=== PATIENT | female | born 1960 | race Caucasian/White ===

== ENCOUNTER 2017-01-25 12:47 | Outpatient (CLI) | payer OTHER | END 2017-01-25 12:48 | disposition home or self-care (01) | LOC: CP 12:47 | PROVIDERS: ATTEND Internal Medicine | DX: J44.9 Chronic obstructive pulmonary disease, unspecified (principal); G47.33 Obstructive sleep apnea (adult) (pediatric); F17.200 Nicotine dependence, unspecified, uncomplicated | CPT/HCPCS: 94060; 94727; 94729 ==

== ENCOUNTER 2017-02-21 20:30 | Outpatient (CLI) | payer OTHER | END 2017-02-21 20:31 | disposition home or self-care (01) | LOC: SLEEPLAB 20:30 | PROVIDERS: ATTEND Internal Medicine | DX: G47.33 Obstructive sleep apnea (adult) (pediatric) (principal); K21.9 Gastro-esophageal reflux disease without esophagitis; J44.9 Chronic obstructive pulmonary disease, unspecified | CPT/HCPCS: 95811 ==

== ENCOUNTER 2017-05-18 20:26 | Inpatient (IN) | payer OTHER ==
[2017-05-18] MEDS ORDERED: Ibuprofen 200 MG TAB ONE (21:41)
[2017-05-18] MEDS ORDERED: Ondansetron ODT 4 MG TAB ONE (21:41)
[2017-05-18 22:09] LABS: #Lymphocytes 1.4 thou/uL (1.20-3.40); #Monocytes 0.8 thou/uL (0.11-0.59); #Neutrophils 7.3 thou/uL (1.40-6.50); %Basophils 0.1 % (0.0-1.0); %Eosinophils 0.4 % (0.0-10.0); %Lymphocytes 14.8 % (21.0-51.0); %Monocytes 8.7 % (0.0-10.0); %Neutrophils 75.9 % (42.0-75.0); Mean Corpuscular Hemoglobin 30.3 pg (27.0-31.0); Mean Corpuscular Volume 91.9 fl (81.0-99.0); Mean Platelet Volume 7.6 fL (7.4-10.4); Platelet Count 218 thou/uL (130-400); RBC Distribution Width 11.4 % (11.5-14.5); White Blood Cell (WBC) Count 9.6 thou/uL (4.8-10.8)
[2017-05-18 22:28] LABS: ALT (SGPT) 29 U/L (8-55); AST (SGOT) 22 U/L (5-34); Alkaline Phosphatase 132 U/L (40-150); Anion Gap 15 mmol/L (10-20); BUN (Urea Nitrogen) 13 mg/dL (9.8-20.1); Bilirubin, Total 0.5 mg/dL (0.2-1.2); Calc. Creatinine Clearance 0 mL/min (70-130); Calcium 9.1 mg/dL (7.8-10.44); Carbon Dioxide 21 mmol/L (22-29); Chloride 106 mmol/L (98-107); Estimated GFR-MDRD 78; Globulin 3.1 g/dL (2.4-3.5); Glucose 99 mg/dL (70-105); Potassium 3.9 mmol/L (3.5-5.1); Protein, Total 7.1 g/dL (6.0-8.3); Sodium 138 mmol/L (136-145)
--- NOTE | 2017-05-18 22:48 | RAD ---
PORTABLE CHEST: 05/18/17 HISTORY: Cough and congestion. The lungs are clear. Heart and mediastinum are unremarkable. IMPRESSION: No acute abnormality. POS: [facility]
[2017-05-18 22:52] LABS: CKMB 0.6 ng/mL (0-6.6); Troponin I Less than 0.010 ng/mL (< 0.028)
[2017-05-18] MEDS ORDERED: predniSONE 20 MG TAB ONE (23:52)
[2017-05-18] MEDS ORDERED: Acetaminophen 500 MG TAB ONE (23:56)
[2017-05-19] MEDS ORDERED: Ondansetron ODT 4 MG TAB SL PRN (01:44)
[2017-05-19] MEDS ORDERED: Ondansetron HCl/PF 4 MG/2 ML Vial IVP PRN (01:44)
[2017-05-19 02:18] VITALS: BMI 33.1
[2017-05-19] MEDS ORDERED: Acetaminophen 325 MG TAB PO PRN (02:33)
[2017-05-19] MEDS ORDERED: hydrALAZINE 20 MG/ML VIAL SLOW IVP PRN (02:33)
[2017-05-19] MEDS ORDERED: Calcium Carbonate 500 MG ChewTAB PO PRN (02:33)
--- NOTE | 2017-05-19 03:01 | HP ---
CHIEF COMPLAINT: Cough, nonproductive and shortness of breath and hypoxia. HISTORY OF PRESENT ILLNESS: This is a 56-year-old pleasant lady who was apparently in usual state of health, came into the hospital with hypoxia and shortness of breath and cough, which is nonproductiv e. Patient has a history of COPD, sleep apnea, WPW syndrome said that she had some cough, which star slick about 4 to 5 days back, which worsened. She also complained of some chills and body aches, had s ome subjective fever. She uses the inhaler at home, but did not help much. She does not have any si ck contacts. The patient also complains of some chest wall pain because of the cough. 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 PAST SURGICAL HISTORY: Significant for some kind of a tumor removed from the abdomen. She does not know exactly what is the nature of it, also has hysterectomy done in the past PSYCHIATRIC HISTORY: Includes anxiety, depression. SOCIAL HISTORY: Smokes. Denies alcohol or recreational drug use. ALLERGIES: PENICILLIN. CURRENT MEDICATIONS: Include albuterol, diltiazem 60 mg p.o. daily, gabapentin 300 mg p.o. 3 times a day, and Symbicort. REVIEW OF SYSTEMS: Significant for cough, shortness of breath, chills, some subjective fever. Other armando, no headache, no eye pain, no hearing loss, no latencies. No chest pain, no diarrhea, dysuria, or polyuria. No memory or mood changes. No neck pain. PHYSICAL EXAMINATION: VITAL SIGNS: Blood pressure is 179/66, T-max is 99.4, respirations 20, 96% on room air, but when she walks the sats dropped to 88 on room air. Patient has a pulse of 113 as well. GENERAL: Patient is lying in bed in mild distress because of the cough and shortness of breath. HEENT: Atraumatic, normocephalic. Pupils are equally round, react to light. Extraocular movements intact. Mucous membranes moist. NECK: Supple. No JVD. CHEST: Some scattered wheezes and decreased breath sounds at the bases. HEART: S1, S2 normal. Tachycardic. ABDOMEN: Soft, obese. EXTREMITIES: No cyanosis, clubbing, or edema. Distal pulses present. NEUROLOGIC: Alert, awake, oriented. No cranial deficits. No sensorimotor deficits. LABORATORY DATA: EKG shows sinus tachycardia at 112. Chest x-ray is negative. Potassium is 3.9, cr eatinine is 0.7. WBC count is 9.4, hemoglobin is 14. ASSESSMENT AND PLAN: 1. Hypoxia secondary to chronic obstructive pulmonary disease exacerbation. We will put the patient on DuoNebs, oxygen, and IV steroids and IV antibiotics. We will monitor the progress of the patient 's hospital stay and make recommendations. 2. Tachycardia with a history of WPW syndrome. Looks like a sinus tachycardia, possibly secondary t o a side effect of the neb treatments. We will monitor her in this hospital stay. 3. Tobacco use. She has been counseled. 4. Obstructive sleep apnea. We will recommend she uses her CPAP at night, severe cough, we will use some cough suppressants. Patient's sequential compression devices for deep venous thrombosis prophy laxis. I will monitor the patient and make recommendations as clinical course evolves.
[2017-05-19] MEDS: Sodium Chloride 0.9% 1,000 ML IV SCH ×2 (04:12→18:10)
[2017-05-19] MEDS: Benzonatate 100 MG CAP PO PRN ×2 (04:14→20:24)
[2017-05-19 04:40] LABS: #Lymphocytes 0.8 thou/uL (1.20-3.40); #Monocytes 0.3 thou/uL (0.11-0.59); #Neutrophils 5.8 thou/uL (1.40-6.50); %Eosinophils 0.4 % (0.0-10.0); %Lymphocytes 12.2 % (21.0-51.0); %Monocytes 4.1 % (0.0-10.0); %Neutrophils 83.3 % (42.0-75.0); Hemoglobin 13.5 g/dL (12.0-16.0); Mean Corpuscular HGB CONC 32.8 g/dL (32.0-36.0); Mean Corpuscular Hemoglobin 30.4 pg (27.0-31.0); Mean Corpuscular Volume 92.6 fl (81.0-99.0); Mean Platelet Volume 7.5 fL (7.4-10.4); Platelet Count 227 thou/uL (130-400); RBC Distribution Width 11.5 % (11.5-14.5); Red Blood Cell (RBC) Count 4.44 mill/uL (4.20-5.40); White Blood Cell (WBC) Count 6.9 thou/uL (4.8-10.8)
[2017-05-19 05:04] LABS: Anion Gap 14 mmol/L (10-20); BUN (Urea Nitrogen) 12 mg/dL (9.8-20.1); Calc. Creatinine Clearance 95 mL/min (70-130); Calcium 9.1 mg/dL (7.8-10.44); Carbon Dioxide 20 mmol/L (22-29); Chloride 113 mmol/L (98-107); Estimated GFR-MDRD 70; Glucose 168 mg/dL (70-105); Potassium 4.5 mmol/L (3.5-5.1); Sodium 142 mmol/L (136-145)
[2017-05-19] MEDS: Nicotine 14 MG PATCH TD SCH (06:08)
[2017-05-19] MEDS: Gabapentin 300 MG CAP PO SCH ×2 (08:56→20:25)
[2017-05-19] MEDS: Docusate 100 MG CAP PO SCH ×2 (08:56→20:24)
[2017-05-19] MEDS ORDERED: Oseltamivir 75 MG CAP PO SCH (12:00)
[2017-05-19] MEDS ORDERED: predniSONE 50 MG TAB PO SCH (12:00)
--- NOTE | 2017-05-19 20:11 | PDOC.PN ---
- Subjective Encounter Start Date: 05/19/17 Encounter Start Time: 09:00 Subjective: nsg notes rev, diana ovn, still having -: difficulty with VANCE - Objective Vital Signs & Weight: Vital Signs (12 hours) Temp Pulse Resp BP Pulse Ox 05/19/17 19:20 98.1 F 90 20 118/66 96 05/19/17 16:16 97.9 F 94 20 119/73 96 05/19/17 11:31 98.0 F 81 20 125/81 94 L Weight Weight 175 lb 9.6 oz I&O: 05/18/17 05/19/17 05/20/17 06:59 06:59 06:59 Intake Total 782 1460 Balance 782 1460 Result Diagrams: 05/19/17 04:28 05/19/17 04:28 Phys Exam - Physical Examination Constitutional: NAD HEENT: PERRLA, moist MMs, sclera anicteric Neck: no nodes, supple Respiratory: no wheezing, no rales, no rhonchi diminished and coarse throughout Cardiovascular: RRR, no significant murmur, no rub Gastrointestinal: soft, non-tender, positive bowel sounds Musculoskeletal: no edema, pulses present Neurological: moves all 4 limbs Psychiatric: normal affect, A&O x 3 Skin: no rash Dx/Plan (1) Influenza Code(s): J11.1 - FLU DUE TO UNIDENTIFIED INFLUENZA VIRUS W OTH RESP MANIFEST Status: Acute (2) COPD exacerbation Code(s): J44.1 - CHRONIC OBSTRUCTIVE PULMONARY DISEASE W (ACUTE) EXACERBATION Status: Acute (3) Tachycardia Code(s): R00.0 - TACHYCARDIA, UNSPECIFIED Status: Acute - Plan Influenza Tamiflu 75mg PO BID supportive care otherwise COPD exac 2/2 influenza steroids (transition IV to PO) nebs ambulatory pulse ox tachycardia likely 2/2 to the above, improved diet: as ros activity: as ros * . Review of Systems - Medications/Allergies Allergies/Adverse Reactions: Allergies Allergy/AdvReac Type Severity Reaction Status Date / Time Penicillins Allergy Verified 12/31/15 15:44 Wasps Allergy Severe Anaphylaxis Uncoded 05/19/17 02:52 Medications: Current Medications Acetaminophen (Tylenol) 650 mg PO Q4H PRN PRN Reason: Headache/Fever or Pain Last Admin: 05/19/17 17:56 Dose: 650 mg Hydrocodone Bitart/Acetaminophen ([place] 5/325) 1 tab PO Q4H PRN PRN Reason: Moderate Pain (4-6) Albuterol/Ipratropium (Duoneb) 3 ml NEB Q6H PRN PRN Reason: SOB &/or Wheezing Benzonatate (Tessalon) 200 mg PO Q6H PRN PRN Reason: Cough Last Admin: 05/19/17 04:14 Dose: 200 mg Calcium Carbonate (Tums) 1,000 mg PO Q4H PRN PRN Reason: Heartburn or Indigestion Diltiazem HCl (Cardizem) 30 mg PO Q6H PRN PRN Reason: HR >120 sustained Docusate Sodium (Colace) 100 mg PO BID [facility] Last Admin: 05/19/17 08:56 Dose: 100 mg Gabapentin (Neurontin) 300 mg PO BID [facility] Last Admin: 05/19/17 08:56 Dose: 300 mg Guaifenesin (Robitussin Sf) 200 mg PO Q4H PRN PRN Reason: Cough Hydralazine HCl (Apresoline) 10 mg SLOW IVP Q4H PRN PRN Reason: Systolic BP > 180 Sodium Chloride (Normal Saline 0.9%) 1,000 mls @ 60 mls/hr IV .[id number] [facility] Stop: 05/20/17 12:04 Last Admin: 05/19/17 18:10 Dose: 1,000 mls Nicotine (Nicoderm Patch) 14 mg TD Q24HR [facility] Last Admin: 05/19/17 06:08 Dose: Not Given Oseltamivir Phosphate (Tamiflu) 75 mg PO BID [facility] Stop: 05/23/17 21:01 Phenol (Chloraseptic [place] 180 Ml Bot) 0 ml PO PRN PRN PRN Reason: Sore Throat Prednisone (Prednisone) 50 mg PO DAILY [facility]
[2017-05-19] MEDS: HYDROcodone/Acetaminophen 5/325 mg Tablet PO PRN (20:25)
[2017-05-19] MEDS: Oseltamivir 75 MG CAP PO SCH (20:25)
[2017-05-20] MEDS: Benzonatate 100 MG CAP PO PRN ×2 (05:07→20:54)
[2017-05-20] MEDS: HYDROcodone/Acetaminophen 5/325 mg Tablet PO PRN ×2 (05:07→20:54)
[2017-05-20] MEDS: Nicotine 14 MG PATCH TD SCH (05:08)
[2017-05-20] MEDS: predniSONE 50 MG TAB PO SCH (09:01)
[2017-05-20] MEDS: Gabapentin 300 MG CAP PO SCH ×2 (09:01→20:55)
[2017-05-20] MEDS: Docusate 100 MG CAP PO SCH ×2 (09:02→20:55)
[2017-05-20] MEDS: Oseltamivir 75 MG CAP PO SCH ×2 (09:02→20:55)
[2017-05-20] MEDS: Diabetic Tussin 200 MG/10 ML UDCUP PO PRN (09:02)
--- NOTE | 2017-05-20 11:17 | PDOC.PN ---
- Subjective Encounter Start Date: 05/20/17 Encounter Start Time: 11:16 Subjective: nsg notes rev, ovn inc coughing and wheezing -: this AM c/o all over achiness - Objective Vital Signs & Weight: Vital Signs (12 hours) Temp Pulse Resp BP Pulse Ox 05/20/17 08:38 97.9 F 101 H 20 113/61 96 05/20/17 08:00 97.9 F 101 H 20 113/61 96 05/20/17 04:00 98.2 F 84 20 102/64 97 Weight Weight 175 lb 9.6 oz I&O: 05/19/17 05/20/17 05/21/17 06:59 06:59 06:59 Intake Total 782 2880 240 Balance 782 2880 240 Result Diagrams: 05/19/17 04:28 05/19/17 04:28 Phys Exam - Physical Examination Constitutional: NAD HEENT: PERRLA, moist MMs Respiratory: wheezing present coarse throughout with wheezing Cardiovascular: RRR, no significant murmur, no rub Gastrointestinal: soft, non-tender, positive bowel sounds Musculoskeletal: no edema, pulses present Neurological: moves all 4 limbs Psychiatric: normal affect, A&O x 3 Dx/Plan (1) Influenza Code(s): J11.1 - FLU DUE TO UNIDENTIFIED INFLUENZA VIRUS W OTH RESP MANIFEST Status: Acute Comment: continue with tamiflu (2) COPD exacerbation Code(s): J44.1 - CHRONIC OBSTRUCTIVE PULMONARY DISEASE W (ACUTE) EXACERBATION Status: Acute Comment: trialed downtitration from IV methylprednisolone to PO prednisone with worsening wheezing and work of breathing will re-initate IV methylprednisolone - likely failed transition to oral regimen (3) Tachycardia Code(s): R00.0 - TACHYCARDIA, UNSPECIFIED Status: Resolved - Plan cont current plan of care, continue antibiotics, respiratory therapy, out of bed /ambulate * . Review of Systems - Medications/Allergies Allergies/Adverse Reactions: Allergies Allergy/AdvReac Type Severity Reaction Status Date / Time Penicillins Allergy Verified 12/31/15 15:44 Wasps Allergy Severe Anaphylaxis Uncoded 05/19/17 02:52 Medications: Current Medications Acetaminophen (Tylenol) 650 mg PO Q4H PRN PRN Reason: Headache/Fever or Pain Last Admin: 05/19/17 17:56 Dose: 650 mg Hydrocodone Bitart/Acetaminophen ([place] 5/325) 1 tab PO Q4H PRN PRN Reason: Moderate Pain (4-6) Last Admin: 05/20/17 05:07 Dose: 1 tab Albuterol/Ipratropium (Duoneb) 3 ml NEB Q6H PRN PRN Reason: SOB &/or Wheezing Benzonatate (Tessalon) 200 mg PO Q6H PRN PRN Reason: Cough Last Admin: 05/20/17 05:07 Dose: 200 mg Calcium Carbonate (Tums) 1,000 mg PO Q4H PRN PRN Reason: Heartburn or Indigestion Diltiazem HCl (Cardizem) 30 mg PO Q6H PRN PRN Reason: HR >120 sustained Diltiazem HCl (Cardizem) 30 mg PO QAM [facility] Last Admin: 05/20/17 09:02 Dose: 30 mg Diltiazem HCl (Cardizem Sr) 60 mg PO QPM [facility] Docusate Sodium (Colace) 100 mg PO BID [facility] Last Admin: 05/20/17 09:02 Dose: 100 mg Gabapentin (Neurontin) 300 mg PO BID [facility] Last Admin: 05/20/17 09:01 Dose: 300 mg Guaifenesin (Robitussin Sf) 200 mg PO Q4H PRN PRN Reason: Cough Last Admin: 05/20/17 09:02 Dose: 200 mg Hydralazine HCl (Apresoline) 10 mg SLOW IVP Q4H PRN PRN Reason: Systolic BP > 180 Sodium Chloride (Normal Saline 0.9%) 1,000 mls @ 60 mls/hr IV .[id number] [facility] Stop: 05/20/17 12:04 Last Admin: 05/19/17 18:10 Dose: 1,000 mls Methylprednisolone Sodium Succinate (Solu-Medrol) 20 mg IVP Q8HR [facility] Nicotine (Nicoderm Patch) 14 mg TD Q24HR [facility] Last Admin: 05/20/17 05:08 Dose: Not Given Oseltamivir Phosphate (Tamiflu) 75 mg PO BID [facility] Stop: 05/23/17 21:01 Last Admin: 05/20/17 09:02 Dose: 75 mg Phenol (Chloraseptic [place] 180 Ml Bot) 0 ml PO PRN PRN PRN Reason: Sore Throat Prednisone (Prednisone) 50 mg PO DAILY [facility] Last Admin: 05/20/17 09:01 Dose: 50 mg
[2017-05-20] MEDS: Ondansetron HCl/PF 4 MG/2 ML Vial SLOW IVP PRN ×2 (12:48→20:54)
[2017-05-20] MEDS: Diltiazem HCl SR 60 mg Capsule PO SCH (20:55)
[2017-05-21] MEDS: Nicotine 14 MG PATCH TD SCH (06:13)
[2017-05-21] MEDS: Chloraseptic Spray 180 ml Bottle PO PRN ×3 (06:13→22:36)
[2017-05-21] MEDS: Gabapentin 300 MG CAP PO SCH ×2 (10:20→20:49)
[2017-05-21] MEDS: Oseltamivir 75 MG CAP PO SCH ×2 (10:20→20:49)
[2017-05-21] MEDS: Docusate 100 MG CAP PO SCH ×2 (10:20→20:49)
[2017-05-21] MEDS: predniSONE 50 MG TAB PO SCH (10:47)
--- NOTE | 2017-05-21 15:15 | PDOC.PN ---
- Subjective Encounter Start Date: 05/21/17 Encounter Start Time: 15:14 Subjective: nsg notes rev, diana ovn, still has persistent cough, got dizzy with cough -: anti-tussive regimen - Objective Vital Signs & Weight: Vital Signs (12 hours) Temp Pulse Resp BP Pulse Ox 05/21/17 11:00 98.1 F 81 16 129/69 94 L 05/21/17 08:00 98.1 F 81 16 93 L 05/21/17 07:49 98.1 F 80 16 120/79 96 Weight Weight 175 lb 9.6 oz I&O: 05/20/17 05/21/17 05/22/17 06:59 06:59 06:59 Intake Total 2880 2721 Balance 2880 2721 Result Diagrams: 05/19/17 04:28 05/19/17 04:28 Phys Exam - Physical Examination Constitutional: NAD HEENT: PERRLA, moist MMs, sclera anicteric mild scattered end expiratory wheezing with rhonchi throughout Gastrointestinal: soft, non-tender, no distention, positive bowel sounds Musculoskeletal: no edema, pulses present Neurological: moves all 4 limbs Psychiatric: normal affect, A&O x 3 Dx/Plan (1) Influenza Code(s): J11.1 - FLU DUE TO UNIDENTIFIED INFLUENZA VIRUS W OTH RESP MANIFEST Status: Acute Comment: continue with tamiflu (2) COPD exacerbation Code(s): J44.1 - CHRONIC OBSTRUCTIVE PULMONARY DISEASE W (ACUTE) EXACERBATION Status: Acute Comment: trialed downtitration from IV methylprednisolone to PO prednisone with worsening wheezing and work of breathing will re-initate IV methylprednisolone - likely failed transition to oral regimen (3) Tachycardia Code(s): R00.0 - TACHYCARDIA, UNSPECIFIED Status: Resolved - Plan cont current plan of care, continue antibiotics, respiratory therapy, incentive spirometry Symptom management, will re-trial oral steroids in AM as respiratory -: status is improved in IV steroids. -: d/w patient * . Review of Systems - Medications/Allergies Allergies/Adverse Reactions: Allergies Allergy/AdvReac Type Severity Reaction Status Date / Time Penicillins Allergy Verified 12/31/15 15:44 Wasps Allergy Severe Anaphylaxis Uncoded 05/19/17 02:52 Medications: Current Medications Acetaminophen (Tylenol) 650 mg PO Q4H PRN PRN Reason: Headache/Fever or Pain Last Admin: 05/19/17 17:56 Dose: 650 mg Hydrocodone Bitart/Acetaminophen ([place] 5/325) 1 tab PO Q4H PRN PRN Reason: Moderate Pain (4-6) Last Admin: 05/20/17 20:54 Dose: 1 tab Albuterol/Ipratropium (Duoneb) 3 ml NEB Q6H PRN PRN Reason: SOB &/or Wheezing Calcium Carbonate (Tums) 1,000 mg PO Q4H PRN PRN Reason: Heartburn or Indigestion Diltiazem HCl (Cardizem) 30 mg PO Q6H PRN PRN Reason: HR >120 sustained Diltiazem HCl (Cardizem) 30 mg PO QAM [facility] Last Admin: 05/21/17 10:20 Dose: 30 mg Diltiazem HCl (Cardizem Sr) 60 mg PO QPM [facility] Last Admin: 05/20/17 20:55 Dose: 60 mg Docusate Sodium (Colace) 100 mg PO BID [facility] Last Admin: 05/21/17 10:20 Dose: 100 mg Gabapentin (Neurontin) 300 mg PO BID [facility] Last Admin: 05/21/17 10:20 Dose: 300 mg Guaifenesin (Robitussin Sf) 200 mg PO Q4H PRN PRN Reason: Cough Last Admin: 05/20/17 09:02 Dose: 200 mg Hydralazine HCl (Apresoline) 10 mg SLOW IVP Q4H PRN PRN Reason: Systolic BP > 180 Methylprednisolone Sodium Succinate (Solu-Medrol) 20 mg IVP Q8HR [facility] Last Admin: 05/21/17 14:49 Dose: 20 mg Nicotine (Nicoderm Patch) 14 mg TD Q24HR [facility] Last Admin: 05/21/17 06:13 Dose: Not Given Ondansetron HCl (Zofran) 4 mg SLOW IVP Q6H PRN PRN Reason: Nausea/Vomiting Last Admin: 05/20/17 20:54 Dose: 4 mg Oseltamivir Phosphate (Tamiflu) 75 mg PO BID [facility] Stop: 05/23/17 21:01 Last Admin: 05/21/17 10:20 Dose: 75 mg Phenol (Chloraseptic [place] 180 Ml Bot) 0 ml PO PRN PRN PRN Reason: Sore Throat Last Admin: 05/21/17 10:48 Dose: 1 spr Prednisone (Prednisone) 50 mg PO DAILY [facility] Last Admin: 05/21/17 10:47 Dose: 50 mg Sodium Chloride (Flush - Normal Saline) 10 ml IVF PRN PRN PRN Reason: Saline Flush Last Admin: 05/21/17 06:14 Dose: 10 ml
[2017-05-21] MEDS: Diltiazem HCl SR 60 mg Capsule PO SCH (20:49)
[2017-05-22] MEDS: Nicotine 14 MG PATCH TD SCH (05:04)
[2017-05-22] MEDS: Diabetic Tussin 200 MG/10 ML UDCUP PO PRN (05:05)
[2017-05-22] MEDS ORDERED: predniSONE 50 MG TAB PO SCH (08:00)
[2017-05-22 08:04] VITALS: BP 133/83; TEMP 97.9
[2017-05-22] MEDS: Oseltamivir 75 MG CAP PO SCH (08:23)
[2017-05-22] MEDS: Gabapentin 300 MG CAP PO SCH (08:23)
[2017-05-22] MEDS: Docusate 100 MG CAP PO SCH (08:23)
[2017-05-22 11:20] LABS: CO2 Tension 41.3 mmHg (35.0-45.0); O2 Tension (PaO2) 75.9 mmHg (80.0-100.0); pH, Arterial 7.41 (7.35-7.45)
[2017-05-22 11:21] LABS: Actual Bicarbonate (HCO3a) 25.7 mEq/L (22-26); Hematocrit-ABG 40.3 % (36.0-47.0)
[2017-05-22 11:22] LABS: ALV-art Gradient 23.255 (0-20); Calcium, Ionized 1.2 mmol/L (1.12-1.30); Puncture Site L.R.
--- NOTE | 2017-05-23 13:23 | DIS ---
DATE OF DISCHARGE: 05/22/2017 DISCHARGE DIAGNOSES: 1. Chronic obstructive pulmonary disease exacerbation. 2. Tachycardia. 3. Influenza. BRIEF SUMMARY OF HOSPITAL COURSE: This is a 56-year-old female who initially presented to the emerge ncy department. CHIEF COMPLAINT: Shortness of breath. Please see the original history and physical for full details surrounding admission. HOSPITAL COURSE: Patient was initially empirically treated for COPD exacerbation including initiatio n of IV Solu-Medrol, supplemental oxygen, DuoNebs, and empiric antibiotics with Levaquin. However, s ubsequently, the patient's influenza screen came back positive and she was started on Tamiflu on day #2 of hospitalization with discontinuation of the Levaquin at that point in time, as she had a design ated infectious etiologies for her COPD exacerbation. Patient was trialed on oral prednisone with th e intention of taper 80 and discharged; however, unfortunately decompensated with increased work of b reathing and wheezing on clinical examination. She was subsequently reinitiated on IV methylpredniso lone 40 mg IV q.6 hours and maintain on this same following 36 hours before being down titrated to pr ednisone again, this time was successfully. At the time of discharge, the patient is instructed to c omplete a course of Tamiflu. Continue with home nebulizer treatments and continue with a prednisone taper. Prescription has been given. Remainder of the patient's chronic medical issues were stable during this hospitalization. The patie nt was found to be mildly tachycardic with heart rate in the low 100s. Initially in the emergency de partment, which was resolved and maintained resolution status throughout the hospitalization. Medication reconciliation as per EMR, the patient is asked to continue on her home regimen with the a ddition of a steroid taper, DuoNebs, and Tamiflu. DISCHARGE INSTRUCTIONS: The patient has been asked to follow closely with her outpatient team includ ing her PCP within the next week. The patient has also been advised to follow closely with her [facility] Pul[facility] Medicine physician as well. Thank you for asking me care for the patient. Questions or concerns, please contact me at [facility].
--- NOTE | 2017-05-26 22:42 | EKG ---
Test Reason : Blood Pressure : / mmHG Vent. Rate : 103 BPM Atrial Rate : 103 BPM P-R Int : 116 ms QRS Dur : 072 ms QT Int : 328 ms P-R-T Axes : 032 013 030 degrees QTc Int : 429 ms Sinus tachycardia Otherwise normal ECG Confirmed by RACHEL WOLFF ([id number]), loan expeditor DAVIDE CROSS ([id number]) on 05/26/2017 10:41:04 PM Referred By: Confirmed By:RACHEL WOLFF
== END 2017-05-22 18:01 | disposition home or self-care (01) | DRG 192 ==
LOC: ERS 20:26 → OBSVTOIN 05-19 00:59 → T4-B 05-19 00:59
PROVIDERS: ADMIT Internal Medicine; ATTEND Internal Medicine
DX: J44.1 Chronic obstructive pulmonary disease with (acute) exacerbation (principal); F17.210 Nicotine dependence, cigarettes, uncomplicated; J11.1 Influenza due to unidentified influenza virus with other respiratory manifestations; G47.33 Obstructive sleep apnea (adult) (pediatric); R00.0 Tachycardia, unspecified; Z88.0 Allergy status to penicillin; T50.995A Adverse effect of other drugs, medicaments and biological substances, initial encounter
CPT/HCPCS: 36415; 71045; 80048; 80053; 82553; 82805; 84484; 85025; 87070; 87205; 87633; 87798; 87804; 90471; 90732; 93005; 94640; 96360; 96361; 99406; A4216; G0009; J2405; J2920; J7506; Q0162

== ENCOUNTER 2017-06-27 11:31 | Outpatient (CLI) | payer OTHER | END 2017-06-27 11:32 | disposition home or self-care (01) | LOC: BICRAD 11:31 | PROVIDERS: ATTEND Family Medicine | DX: M54.6 Pain in thoracic spine (principal) | CPT/HCPCS: 72072 ==

== ENCOUNTER 2017-08-08 12:11 | Outpatient (CLI) | payer OTHER | END 2017-08-08 12:12 | disposition home or self-care (01) | LOC: BICMAMMO 12:11 | PROVIDERS: ATTEND Family Medicine | DX: Z12.31 Encounter for screening mammogram for malignant neoplasm of breast (principal) | CPT/HCPCS: 77067 ==

== ENCOUNTER 2017-12-29 20:56 | Emergency (ER) | payer OTHER ==
--- NOTE | 2017-12-29 21:33 | RAD ---
RADIOGRAPH LEFT KNEE 4 VIEWS: 12/29/17 at 9:16 p.m. HISTORY: 57-year-old female status post acute traumatic injury to the left knee from fall. FINDINGS: There is a fracture of the lateral proximal tibial metaphysis and epiphysis, involving the articular surface of the lateral tibial plateau, where there is minimal displacement. There is no dislocation. No other fracture is visualized. There is suprapatellar hemarthrosis. IMPRESSION: 1. Acute, traumatic, intra-articular, minimally displaced fracture of the left lateral tibial pl ateau. 2. Suprapatellar hemarthrosis. POS: [facility]
[2017-12-29] MEDS ORDERED: HYDROcodone/Acetaminophen 10/325 mg Tablet ONE (21:49)
== END 2017-12-29 23:20 | disposition home or self-care (01) ==
LOC: ERS 20:56
DX: S82.142A Displaced bicondylar fracture of left tibia, initial encounter for closed fracture (principal); F41.9 Anxiety disorder, unspecified; F17.210 Nicotine dependence, cigarettes, uncomplicated; G47.30 Sleep apnea, unspecified; J44.9 Chronic obstructive pulmonary disease, unspecified; M19.90 Unspecified osteoarthritis, unspecified site; G62.9 Polyneuropathy, unspecified; Z79.51 Long term (current) use of inhaled steroids; Z79.899 Other long term (current) drug therapy; W01.0XXA Fall on same level from slipping, tripping and stumbling without subsequent striking against object, initial encounter

== ENCOUNTER 2018-01-04 11:20 | Day surgery (SDC) | payer OTHER ==
[2018-01-04] MEDS ORDERED: Clindamycin/D5W 600 mg/50 ml Premix Bag ONE (12:52)
[2018-01-04] MEDS ORDERED: Ropivacaine 0.5% HCl/PF (150 MG/30 ML VIAL) ONE (13:54)
[2018-01-04] MEDS ORDERED: Ropivacaine 0.2% HCl/PF (40 MG/20 ML VIAL) ONE (13:54)
[2018-01-04] MEDS ORDERED: Bupivacaine HCl 0.5%/Epinephrine 1:200,000/PF 30 ml Vial ONE (13:54)
[2018-01-04] MEDS ORDERED: Fentanyl 100 MCG/2 ML VIAL ONE ×2 (13:57→15:11)
[2018-01-04] MEDS ORDERED: Midazolam HCl 2 mg/2 ml Vial ONE (13:57)
[2018-01-04] MEDS ORDERED: Fentanyl 100 MCG/2 ML VIAL IV PRN (14:34)
[2018-01-04] MEDS ORDERED: Promethazine HCl 25 MG/ML VIAL IM PRN (14:34)
[2018-01-04] MEDS ORDERED: traMADol HCl 50 MG TAB PO PRN ×2 (14:34)
[2018-01-04] MEDS ORDERED: Zolpidem Tartrate 5 MG TAB PO PRN (14:34)
[2018-01-04] MEDS ORDERED: Ondansetron HCl/PF 4 MG/2 ML Vial IVP PRN (14:34)
[2018-01-04] MEDS ORDERED: HYDROcodone/Acetaminophen 10/325 mg Tablet PO PRN ×2 (14:34)
[2018-01-04] MEDS ORDERED: Ropivacaine 0.2% 550 ML 550 ML NERVE BLCK SCH (14:34)
[2018-01-04] MEDS ORDERED: PHENYLEPHRINE-NS 100 MCG/ML 10 ML SYRINGE ONE (14:50)
[2018-01-04] MEDS ORDERED: PROPOFOL 200 MG/20 ML VIAL ONE (14:50)
[2018-01-04] MEDS ORDERED: Lidocaine 1% PF 5 ML VIAL ONE (14:50)
[2018-01-04] MEDS ORDERED: Promethazine HCl 25 MG/ML VIAL ONE ×2 (17:04→17:27)
[2018-01-04] MEDS ORDERED: Ondansetron HCl/PF 4 MG/2 ML Vial ONE (17:28)
[2018-01-04] MEDS ORDERED: HYDROcodone/Acetaminophen 7.5/325 mg Tablet PO PRN ×2 (20:00)
[2018-01-04] MEDS ORDERED: HYDROcodone/Acetaminophen 5/325 mg Tablet PO PRN (20:01)
[2018-01-04] MEDS: Ketorolac Tromethamine 30 MG/ML VIAL IVP PRN (20:17)
[2018-01-04] MEDS: Sodium Chloride 0.9% 1,000 ML IV SCH (20:20)
[2018-01-04 21:11] VITALS: BMI 29.6
[2018-01-05] MEDS ORDERED: Albuterol Sulfate 1.25 MG/3 ML NEB NEB PRN (02:21)
[2018-01-05] MEDS ORDERED: Guaifenesin DM 100-10/5 ML UDCUP PO PRN (02:30)
[2018-01-05] MEDS ORDERED: Mometasone/Formoterol 120 PUFF INHALER INH SCH (06:30)
[2018-01-05] MEDS: Sodium Chloride 0.9% 1,000 ML IV SCH ×2 (07:40→17:28)
--- NOTE | 2018-01-05 07:48 | RAD ---
LEFT KNEE 2 VIEWS: HISTORY: Status post ORIF. COMPARISON: 12/29/17. FINDINGS: Two portable fluoroscopic spot images of the left knee are performed. Metal plate and screws stabilize the lateral tibial plateau with improved position and alignment from the prior study. IMPRESSION: Status post open reduction internal fixation left tibia, including the lateral tibial plateau. POS: [facility]
[2018-01-05] MEDS ORDERED: Prevnar 13-Val Conj/PF 0.5 ML SYRINGE IM ONE (09:00)
[2018-01-05] MEDS ORDERED: Montelukast Sodium 10 mg Tablet PO SCH (09:00)
[2018-01-05] MEDS: Ketorolac Tromethamine 30 MG/ML VIAL IVP PRN (10:42)
[2018-01-05] MEDS: HYDROcodone/Acetaminophen 5/325 mg Tablet PO PRN ×2 (10:43→17:39)
[2018-01-05 16:41] VITALS: BP 111/70; TEMP 99
--- NOTE | 2018-01-07 13:58 | OP ---
DATE OF SURGERY: 01/04/2018 PREOPERATIVE DIAGNOSIS: Left lateral tibial plateau fracture. POSTOPERATIVE DIAGNOSIS: Left lateral tibial plateau fracture. SURGICAL PROCEDURE: Open reduction internal fixation left lateral tibial plateau. ANESTHESIA: General. SURGEON: Bull Peres M.D. TOURNIQUET TIME: 37 minutes at 300 mmHg. IMPLANTS: Synthes 3.5 mm LCP proximal tibial plate, 4-hole. COMPLICATIONS: None. DRAINS: None. SPECIMENS: None. OUTCOME: Near anatomic alignment. INDICATIONS: The patient is a 57-year-old lady, status post fall sustaining a left lateral tibial pl ateau fracture. There is some minor joint depression. After discussion with patient including risks and benefits, we decided to proceed with open reduction internal fixation. Informed consent has bee n obtained. I believe all questions answered. PROCEDURE: After the induction of general anesthesia, the patient was positioned supine on the OR ta ble, then a sterile prep and drape was performed in the left lower extremity. Next, an Esmarch olivo ge was used to exsanguinate the limb and then tourniquet inflated to 300 mmHg. Next, a curvilinear i ncision was made at the proximal lateral tibia. After skin was sharply incised, dissection was kymberly ed down bluntly to the underlying anterior compartment. The fascia of the anterior compartment was r eleased off of the crest of the tibia and further released at the lateral flare of the tibia. The mu scle belly was reflected posteriorly gaining access to the lateral flare of the proximal tibia. At t his point, the dissection was further carried out proximally under the lateral meniscus such that the lateral plateau joint surface could be identified and visualized. This plateau was remarkable for a slight step-off and gap at the joint surface. This step-off was then corrected with manipulation of the lateral fragment. Once corrected, it was held in place with a K-wire. Next, a 4-hole lateral t ibial plateau plate was applied to the lateral cortex of the proximal tibia. This was then held in p lace with a K-wire through the plate. C-arm imaging on both AP and lateral views were performed to c onfirm appropriate position of the hardware. Next, a cortical screw was used to hold the plate again st the tibia. This was then followed by insertion of 4 locking screws under the plateau in a rafter type fashion. At the completion of this, an additional oblique screw was placed in standard fashion. AP and lateral C-arm images showed acceptable alignment of the joint surface and acceptable positio darryl of the hardware. The wound was then irrigated with bulb syringe and closed in layers with 0 Anurag ryl for the fascia of the anterior compartment, followed by 2-0 Vicryl subcutaneously, and alberto fo r the skin. A Xeroform gauze, Webril, and Moris wrap dressing was applied to the knee and the knee was placed in a hinged knee brace. Tourniquet was let down at completion of dressing and patient was tr ansferred to recovery room in stable condition. There were no complications. She tolerated the proc edure well.
== END 2018-01-05 18:40 | disposition home or self-care (01) ==
LOC: SDC 11:20 → SURG B 19:59 → SDC 01-05 18:40
PROVIDERS: ATTEND Orthopaedic Surgery
PROC: 0QSH04Z Reposition Left Tibia with Internal Fixation Device, Open Approach (ICD-10-PCS; principal; 2018-01-05)
DX: S82.142A Displaced bicondylar fracture of left tibia, initial encounter for closed fracture (principal); E11.9 Type 2 diabetes mellitus without complications; J44.9 Chronic obstructive pulmonary disease, unspecified; K21.9 Gastro-esophageal reflux disease without esophagitis; M19.90 Unspecified osteoarthritis, unspecified site; G25.81 Restless legs syndrome; F17.210 Nicotine dependence, cigarettes, uncomplicated; Z79.51 Long term (current) use of inhaled steroids; Z79.899 Other long term (current) drug therapy; Z88.0 Allergy status to penicillin; Z91.038 Other insect allergy status; W18.30XA Fall on same level, unspecified, initial encounter
CPT/HCPCS: 76001; 96374; 96375; 96376; A4216; A4306; C1713; G8978-GP-CL; G8979-GP-CJ; J0670; J1885; J2001; J2250; J2405; J2550; J2704; J2795; J3010; J3490

== ENCOUNTER 2018-07-04 16:35 | Emergency (ER) | payer MEDICAID, OTHER ==
--- NOTE | 2018-07-04 21:12 | RAD ---
CHEST TWO VIEW 07/04/18 HISTORY: Chest pain. Cough. COMPARISON: Radiograph 08/16/17. FINDINGS: Some linear scarring left lung base. No pneumothorax. No effusion. The cardiac silhouette and mediast inal contours appear within normal limits. IMPRESSION: No acute intrathoracic abnormality. POS: [facility]
[2018-07-04] MEDS ORDERED: Albuterol Sulfate 2.5 mg/3 ml Neb ONE (21:29)
== END 2018-07-04 21:27 | disposition home or self-care (01) ==
LOC: ERS 16:35
DX: J44.1 Chronic obstructive pulmonary disease with (acute) exacerbation (principal); G47.30 Sleep apnea, unspecified; Z79.51 Long term (current) use of inhaled steroids; Z79.899 Other long term (current) drug therapy
CPT/HCPCS: 71046; 87804; 94640; J7611; J7620

== ENCOUNTER 2018-12-17 12:43 | Outpatient (CLI) | payer MEDICAID ==
--- NOTE | 2018-12-17 14:52 | MMO ---
Bilateral MAMMO Bilat Screen DDI. CLINICAL HISTORY: Patient is 58 years old and is seen for screening. The patient has no family history of breast cancer. The patient has no personal history of cancer. VIEWS: The views performed were: bilateral craniocaudal and bilateral mediolateral oblique. FILMS COMPARED: The present examination has been compared to prior imaging studies performed at [facility] on 06/14/2015, and at [facility] on 06/05/2016 and 08/08/2017. This study has been interpreted with the assistance of computer-aided detection. MAMMOGRAM FINDINGS: There are scattered fibroglandular densities. Benign calcifications are noted. There are no suspicious masses, suspicious calcifications, or new areas of architectural distortion. IMPRESSION: THERE IS NO MAMMOGRAPHIC EVIDENCE OF MALIGNANCY. A ROUTINE FOLLOW-UP MAMMOGRAM IN 1 YEAR IS RECOMMENDED. ACR BI-RADS Category 2 - Benign finding MAMMOGRAPHY NOTE: 1. A negative mammogram report should not delay a biopsy if a dominant of clinically suspicious mass is present. 2. Approximately 10% to 15% of breast cancers are not detected by mammography. 3. Adenosis and dense breasts may obscure an underlying neoplasm. Reported by: BEBA BYRD MD Electonically Signed: [id number]
== END 2018-12-17 12:44 | disposition home or self-care (01) ==
LOC: BICMAMMO 12:43
PROVIDERS: ATTEND Family Medicine
DX: Z12.31 Encounter for screening mammogram for malignant neoplasm of breast (principal)
CPT/HCPCS: 77067

== ENCOUNTER 2018-12-18 11:25 | Outpatient (CLI) | payer MEDICAID ==
--- NOTE | 2018-12-18 13:10 | RAD ---
THREE VIEWS OF THE RIGHT FOOT: 12/18/18 COMPARISON: None. HISTORY: Right foot pain for a few years. FINDINGS: Three views of the right foot shows no evidence of acute fracture or dislocation. No degenerative ilana nges are seen. No soft tissue swelling is present. IMPRESSION: No evidence of acute osseous abnormality. POS: [facility]
--- NOTE | 2018-12-18 13:11 | RAD ---
THREE VIEWS OF THE LEFT FOOT: 12/18/18 COMPARISON: None. HISTORY: Foot pain for years. FINDINGS: Views of the left foot shows diffuse osteopenia. There is no evidence of acute fracture or dislocatio n. No soft tissue swelling is seen. No degenerative changes are present. IMPRESSION: No evidence of acute osseous abnormality. POS: [facility]
== END 2018-12-18 11:26 | disposition home or self-care (01) ==
LOC: BICRAD 11:25
PROVIDERS: ATTEND Family Medicine
DX: M79.671 Pain in right foot (principal); M79.672 Pain in left foot

== ENCOUNTER 2019-01-15 07:36 | Observation (INO) | payer OTHER ==
[2019-01-14 11:55] VITALS: BMI 191.3
[2019-01-15 08:29] LABS: #Basophils 0.1 thou/uL (0.0-0.2); #Eosinphils 0.2 thou/uL (0.0-0.7); #Lymphocytes 3.5 thou/uL (1.20-3.40); #Neutrophils 8.1 thou/uL (1.40-6.50); %Basophils 0.5 % (0.0-1.0); %Eosinophils 1.4 % (0.0-10.0); %Lymphocytes 27.5 % (21.0-51.0); %Neutrophils 62.6 % (42.0-75.0); Hemoglobin 12.5 g/dL (12.0-16.0); Mean Corpuscular HGB CONC 33.9 g/dL (32.0-36.0); Mean Corpuscular Hemoglobin 30.2 pg (27.0-31.0); Mean Corpuscular Volume 89.2 fL (78.0-98.0); Mean Platelet Volume 8.2 fL (7.4-10.4); Platelet Count 241 thou/uL (130-400); RBC Distribution Width 11.9 % (11.5-14.5); Red Blood Cell (RBC) Count 4.15 mill/uL (4.20-5.40); White Blood Cell (WBC) Count 12.9 thou/uL (4.8-10.8)
[2019-01-15 08:36] LABS: PTT 27.7 SEC (22.9-36.1); Prothrombin Time 12.9 SEC (12.0-14.7)
[2019-01-15 08:41] LABS: Anion Gap 11 mmol/L (10-20); BUN (Urea Nitrogen) 19 mg/dL (9.8-20.1); Calc. Creatinine Clearance 92 mL/min (70-130); Calcium 9.3 mg/dL (7.8-10.44); Carbon Dioxide 26 mmol/L (22-29); Chloride 111 mmol/L (98-107); Estimated GFR-MDRD 78; Glucose 103 mg/dL (70-105); Potassium 4.2 mmol/L (3.5-5.1); Sodium 144 mmol/L (136-145)
[2019-01-15] MEDS ORDERED: Lidocaine 1% (PF) 30 ML VIAL ONE (09:10)
[2019-01-15] MEDS ORDERED: Heparin 10,000 UNITS/1 ML VIAL ONE (09:10)
[2019-01-15] MEDS ORDERED: Midazolam HCl 2 mg/2 ml Vial ONE (09:55)
[2019-01-15] MEDS ORDERED: Fentanyl 100 MCG/2 ML VIAL ONE (09:55)
[2019-01-15] MEDS ORDERED: Ketamine 50 MG/ML (10ML VIAL) ONE (09:55)
[2019-01-15] MEDS ORDERED: Propofol 500 MG/50 ML VIAL ONE (09:55)
[2019-01-15] MEDS ORDERED: Phenylephrine HCL 10 MG/ML VIAL ONE (10:12)
[2019-01-15] MEDS ORDERED: Isoproterenol 0.2 MG/1 ML AMP ONE (11:00)
[2019-01-15] MEDS ORDERED: Ondansetron HCl/PF 4 MG/2 ML Vial IVP PRN (13:18)
[2019-01-15] MEDS ORDERED: Promethazine HCl 25 MG/ML VIAL IM PRN (13:18)
[2019-01-15] MEDS ORDERED: Promethazine HCl 25 MG/ML VIAL SLOW IVP PRN (13:18)
[2019-01-15] MEDS ORDERED: Ondansetron PF 4 MG/2 ML Vial ONE (13:44)
[2019-01-15] MEDS ORDERED: Promethazine HCl 25 MG/ML VIAL ONE (13:50)
--- NOTE | 2019-01-15 16:56 | EKG ---
Test Reason : PREOP Blood Pressure : / mmHG Vent. Rate : 075 BPM Atrial Rate : 075 BPM P-R Int : 108 ms QRS Dur : 124 ms QT Int : 422 ms P-R-T Axes : 058 -42 080 degrees QTc Int : 471 ms Normal sinus rhythm Jfbbj-Ccbrrpeus-Lbwnb Abnormal ECG When compared with ECG of 18-MAY-2017 22:08, Ndolm-Veecsiazt-Lptar is now Present Confirmed by DR. Scott HAY ([id number]) on 01/15/2019 4:56:15 PM Referred By: [facility] Confirmed By:DR. Scott HAY
[2019-01-15] MEDS ORDERED: Acetaminophen 325 MG TAB PO PRN (17:11)
[2019-01-15] MEDS ORDERED: Acetaminophen 325 MG TAB PO SCH (17:15)
--- NOTE | 2019-01-15 17:41 | OP ---
DATE OF PROCEDURE: 01/15/2019 PROCEDURE PERFORMED: Electrophysiology study and radiofrequency ablation. REFERRING PHYSICIAN: Girish Taveras MD REASON FOR PROCEDURE: Ms. Saravia is a 58-year-old woman with history of palpitations since teenager age. She is known to have an abnormal EKG consistent with pre-excitation during sinus rhythm. No EKG during tachycardia is available. She is here for EP study and radiofrequency ablation. DESCRIPTION OF PROCEDURE: The patient received general anesthesia by Anesthesia specialist. After adequate level of sedation achieved, the left and right femoral vein were prepped, draped, and anesthetized using subcutaneous lidocaine and on the left side, a 6 and 8-Romansh sheath was introduced through which a octapolar and decapolar diagnostic catheter were advanced to the right atrium, right ventricle , His bundle, and CS position. Pacing mapping and recording were performed in each location including stimulation of the left atrium from the CS and the RV as well. Para-Hisian pacing was also performed. On the right side, an 8-Romansh sheath was introduced through which a ThermoCool SFST catheter was advanced to the right atrium and 3D map of the right atrium was performed. The baseline rhythm was sinus rhythm at 922 milliseconds cycle length, NM 160 milliseconds, QRS 108 milliseconds, AH 108, HV 35 milliseconds, QT 423 milliseconds. During the baseline measurements, pre-excitation was noted when actually the HV interval was shorter at 20 milliseconds, occasionally negative, AH was actually in zero hence the delta wave present. The AV Wenckebach cycle length was 460 milliseconds. Retrograde Wenckebach was initially 460 milliseconds. AV kei ERP was 600/400 milliseconds. Dual AV kei physiology was not noted. The AV Wenckebach was less than 300 milliseconds with pathway potential more rapid than that. The pathway ERP was 260 milliseconds, on Isuprel, we were able to induce a short nonsustained one-to-one, narrow complex tachycardia could be consistent with orthodromic AV reentrant tachycardia. Following that, burst atrial pacing maneuvers were further performed, but no sustained SVT was inducible at this time. No atrial flutter, was also inducible down to [address] Following that mapping of the accessory pathway was performed. The shortest AV time was mapped to the roof of the CS os. Radiofrequency ablation was performed in this area. A total of 3 minutes at 30 linares delivered. During the mejia, no AV block was observed. Occasional junctional beatings were seen. Following the mejia, the accessory pathway has not been observed. Normal AV conduction was seen. Isuprel was initiated at this point at 6 mcg and during Isuprel administration, the patient transiently developed complete AV block with accessory pathway conduction seen. With isuprel washout the accesory pathway conduction disappeared and 2:1 AV block was seen, which was clearly AV kei level. 30 minutes of wait of Isuprel resolved the AV block, at the end of case, an AV kei Wenckebach was observed at 600 milliseconds. The AV kei ERP was 600/340 milliseconds. HV interval was normal at 35 milliseconds and no pre-excitation was seen at the end of the case. CONCLUSION: 1. Obvious pre-excitation with accessory pathway mapped to the CS roof area. 2. Short nonsustained AV reciprocating tachycardia was seen on Isuprel. 3. Successful pathway ablation performed with no pre-excitation observed in the end of the case. 4. Transient AV kei level block was seen on Isuprel, which resolved with discontinuation of Isuprel by the end of the case with adequate AV kei and infra-Hisian function seen. 5. No additional tachycardia is inducible. PLAN: Continue to observe for recurrence of atrial arrhythmias and monitor overnight for bradycardia. If recurrent SVT is seen consider Cryoablation. Job ID: [id number] [facility]
[2019-01-15] MEDS ORDERED: Ibuprofen 200 MG TAB PO PRN (19:58)
[2019-01-15] MEDS ORDERED: Mometasone/Formoterol 120 PUFF INHALER INH PRN (19:58)
[2019-01-15] MEDS ORDERED: Albuterol Sulfate 1.25 MG/3 ML NEB NEB PRN (19:58)
[2019-01-15] MEDS ORDERED: Pregabalin 50 MG CAP PO SCH (21:00)
[2019-01-15] MEDS ORDERED: Montelukast Sodium 10 mg Tablet PO SCH (21:00)
[2019-01-15] MEDS ORDERED: Ondansetron ODT 4 MG TAB PO PRN (21:40)
[2019-01-15] MEDS ORDERED: Ondansetron PF 4 MG/2 ML Vial IVP PRN (21:40)
--- NOTE | 2019-01-16 01:36 | CON ---
DATE OF CONSULTATION: 01/15/2019 TIME OF INITIAL ASSESSMENT: 1900 hours. PRIMARY CARE PHYSICIAN: Dr. Smith. REFERRING PHYSICIAN: Dr. Johnson. REASON FOR CONSULTATION: Medical management. REASON FOR ADMISSION: Status post ablation for WPW. HISTORY OF PRESENT STAY: Ms. Saravia is a 58-year-old woman, who has a history of WPW who underwent cardiac ablation earlier today done by Dr. Johnson. She is known to have a long-standing history of palpitations since she was a teenager. The patient has had persistent abnormal EKGs with pre-excitation during sinus rhythm. She had an EP study done today with RFA. Per operative note, it appears the patient was noted to have a short non-sustained AV reciprocating tachycardia. There was successful pathway ablation performed with no pre-excitation noted following the procedure. She was recommended for observation for recurrence of atrial arrhythmias monitoring overnight. During the procedure, she did become bradycardic, however, this did improve. Following the procedure, she did undergo an EKG that showed a delta wave. On telemonitoring after that, she was noted have WPW. Dr. Johnson was notified by the floor nurse and it was recommended to continue observation. There were no plans to take her for any further procedures at that point. The patient states she feels nauseated and did have an episode of vomiting after the procedure. Since then, she has been sleeping and just woke up 10 minutes prior to initial assessment. She reports feeling nauseated due to being hungry. She was given broth, but is asking for a regular meal. She does report chest pain, which she describes as a pressure and states it is 8/10 in severity in the center of her chest. She is unsure when it started and states she noticed after waking up. Denies any associated shortness of breath. States it is nonradiating. Reports having shortness of breath at baseline associated with COPD, but states she feels she is at her baseline. Denies having any abdominal pain or cramping. Reports a mild headache, which she normally treats with ibuprofen. No visual changes. All other review of systems are negative. Echo done at outside facility in 05/2018 showed EF 60-65%, grade 1 diastolic dysfunction, mild TR, mild MR, and aortic valve sclerosis but opens well. PAST MEDICAL HISTORY: 1. Sleep apnea, uses CPAP. 2. WPW. 3. COPD. 4. Carpal tunnel. 5. Bone spur in the right shoulder. 6. Osteoarthritis. 7. Neuropathy. PAST SURGICAL HISTORY: 1. History of tumor removal from female organs. 2. Hysterectomy. 3. Left knee surgery. SOCIAL HISTORY: The patient is independent. Reports that she continues to smoke though less than she normally does. Denies any heavy alcohol use or illicit drug use. FAMILY HISTORY: Noncontributory. ALLERGIES: 1. PENICILLIN. 2. INTOLERANCE TO TRAMADOL. CURRENT MEDICATIONS: 1. Albuterol. 2. Budesonide/formoterol. 3. Ibuprofen. 4. DuoNebs. 5. Montelukast. 6. Omeprazole. 7. Lyrica. PHYSICAL EXAMINATION: GENERAL: The patient appears well developed, well nourished, is in no acute distress. VITAL SIGNS: Temperature 98.8, pulse 89, respirations 20, O2 saturation 94% on room air, blood pressure 119/73. HEENT: Normocephalic and atraumatic. Pupils are equal, round, and reactive to light. Sclerae without icterus. Oropharynx is clear. NECK: Supple. LUNGS: Clear to auscultation bilaterally without any wheezes, rales, or rhonchi. CARDIAC: Regular rate and rhythm. ABDOMEN: Soft, nontender, nondistended. Normoactive bowel sounds present. EXTREMITIES: No lower leg swelling or edema. NEUROLOGIC: Alert and oriented x3. SKIN: Without rash or jaundice. LABORATORY DATA: White blood count 12.9, hemoglobin 12.5, hematocrit 37.1, platelets 241. PT 12.9, INR 1, PTT 27.7. Sodium 144, potassium 4.2, BUN 19, creatinine 0.77, GFR 78, glucose 103, calcium 9.3. IMAGING DATA: None. IMPRESSION AND PLAN: Ms. Saravia is a very pleasant 58-year-old woman, who has been referred for management of the followin 1. 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 Per Dr. Johnson, she is to remain under observation with continuous cardiac monitoring. She has been noted by telemetry to be in Qoqkh-Szntlhzgw-Flkxu syndrome with a heart rate of 88. This was ordered at 1750 hours. We will obtain an EKG. Dr. Johnson is aware. Further management as per Dr. Johnson. 2. Chest pain. The patient reports 8/10 discomfort, possibly associated with vomiting. She did have some mild discomfort of her chest on palpation. We will give Tylenol for her pain and we will assess EKG for any ST changes or T-wave abnormalities. 3. Shortness of breath. The patient with chronic obstructive pulmonary disease at baseline and states she does not have any worsening shortness of breath at this present time. Continue DuoNebs and resume home inhalers. Monitor O2 saturations. 4. Headache. The patient requesting ibuprofen. 5. Gastrointestinal prophylaxis. We will resume Protonix, which she takes at home. 6. Deep venous thrombosis prophylaxis. 7. Mechanical sequential compression devices. 8. Code status is full. Her surrogate decision maker is her daughter, Rosalia Monet. 9. The patient's case was discussed with Dr. Taveras who agrees with plan of care as described above. Job ID: [id number] [facility]
[2019-01-16 04:36] LABS: #Basophils 0.1 thou/uL (0.0-0.2); #Lymphocytes 1.8 thou/uL (1.20-3.40); #Monocytes 0.8 thou/uL (0.11-0.59); #Neutrophils 14.5 thou/uL (1.40-6.50); %Basophils 0.7 % (0.0-1.0); %Lymphocytes 10.2 % (21.0-51.0); %Monocytes 4.5 % (0.0-10.0); %Neutrophils 84.6 % (42.0-75.0); Hemoglobin 12.9 g/dL (12.0-16.0); Mean Corpuscular HGB CONC 33.8 g/dL (32.0-36.0); Mean Corpuscular Hemoglobin 30.7 pg (27.0-31.0); Mean Corpuscular Volume 90.7 fL (78.0-98.0); Mean Platelet Volume 8.1 fL (7.4-10.4); Platelet Count 209 thou/uL (130-400); RBC Distribution Width 12.1 % (11.5-14.5); Red Blood Cell (RBC) Count 4.22 mill/uL (4.20-5.40); White Blood Cell (WBC) Count 17.2 thou/uL (4.8-10.8)
[2019-01-16 04:54] LABS: Anion Gap 14 mmol/L (10-20); BUN (Urea Nitrogen) 15 mg/dL (9.8-20.1); Calc. Creatinine Clearance 97 mL/min (70-130); Carbon Dioxide 21 mmol/L (22-29); Chloride 112 mmol/L (98-107); Estimated GFR-MDRD 82; Glucose 203 mg/dL (70-105); Potassium 4.3 mmol/L (3.5-5.1); Sodium 143 mmol/L (136-145)
[2019-01-16 12:04] VITALS: BP 114/61; TEMP 98.1
--- NOTE | 2019-01-16 18:18 | PRG ---
DATE OF SERVICE: 01/16/2019 SUBJECTIVE: Ms. Saravia is returning for followup. She has been doing fair without angina, CHF, dizziness, or loss of consciousness. OBJECTIVE: VITAL SIGNS: Blood pressure is 114/61, heart rate 60, respirations 20, temperature 98.1 degrees Fahrenheit. GENERAL: This is an alert and oriented man, in no apparent distress. NECK: Supple. Jugular veins not distended. CHEST: Coarse without crackles. HEART: Sounds are regular to rate and rhythm. No murmur or gallop. ABDOMEN: Benign. Bowel sounds are positive. EXTREMITIES: Lower extremities without edema, clubbing, or cyanosis. Groin catheter insertion site is without reaction. DATABASE: EKG is reviewed revealing sinus rhythm. No AV blocks. Presence of pre-excitation is noted on this morning's EKG. No pre-excitation was seen on the EKG from last night. Normal MI. LABORATORY DATA: White cell count 7.2, hemoglobin 12.9, platelet count is 209. Sodium 143, potassium 4.3, BUN is 15, creatinine 0.73. ASSESSMENT AND PLAN: Ms. Saravia is a pleasant 58-year-old woman, who has history of recurrent palpitations, underwent an electrophysiology study and radiofrequency ablation by me yesterday. She was demonstrated to have an accessory pathway with the earliest ventricular activation in the posterior septal area close to the CS os. Radiofrequency ablation was performed in this location, which eliminated the pre-excitation. During Isuprel administration, she had an episode of complete AV block, which through quickly resolved after stopping Isuprel and with recovery. This could have been due to irritation of AV node. Hence, the ablation in the CS os area, but again, normal AV conduction and infra-Hisian function were seen in the end of the EP study. During overnight, recurrent pre-excitation was seen. Hence, no sustained atrial fibrillation/flutter or SVT was induced during the study. At this point, it is reasonable to continue monitoring for any recurrence of any atrial arrhythmias. She is stable otherwise for discharge. We will see her back in 6 weeks in the office for followup. Job ID: [id number]
--- NOTE | 2019-01-17 04:17 | DIS ---
DATE OF ADMISSION: 01/15/2019 DATE OF DISCHARGE: 01/16/2019 DISCHARGE DIAGNOSES: 1. Jnxmw-Xduevblkz-Atiru syndrome, status post radiofrequency ablation. 2. Chest pain secondary to #1, resolved. 3. Dyspnea secondary to #1. 4. Chronic obstructive pulmonary disease without exacerbation. 5. Obstructive sleep apnea, on nocturnal CPAP. CONSULTATIONS: 1. Dr. Johnson with Electrophysiology Service. 2. Dr. Taveras with Cardiology Service. PERTINENT LABORATORY AND X-RAY FINDINGS: CBC showed a white blood cell count ranging between 12.9 to 17.2. HOSPITAL COURSE: The patient was observed on the telemetry unit after initially presenting with palpitations and shortness of breath with an EKG consistent with Rnqjg-Qeojpiwvo-Lnije syndrome. The patient was initially evaluated by Cardiology Service with referral to the Electrophysiology Service, at which point, the patient underwent electrophysiology study. The patient underwent successful radiofrequency ablation of accessory pathway due to Zlxkx-Pwakcjmae-Oovpv syndrome. The patient tolerated the procedure without complication and current telemetry monitoring shows a sinus bradycardia with heart rates in the 50s to 60s. The patient overall remained clinically stable during the hospital course with stable vital signs at the time of discharge. I have examined the patient at the time of discharge and discussed followup instructions. The patient verbalized understanding and in agreement, ready for discharge on 01/16/2019. DISCHARGE MEDICATIONS: 1. Albuterol sulfate 1.25 mg nebulized q.6 hours p.r.n. 2. Symbicort 80/4.5 2 puffs inhaled b.i.d. 3. Ibuprofen 200 mg p.o. q.6 hours p.r.n. 4. DuoNeb 3 mL nebulized at bedtime p.r.n. 5. Singulair 10 mg p.o. q.a.m. 6. Omeprazole 40 mg p.o. b.i.d. 7. Lyrica 50 mg p.o. at bedtime. FOLLOWUP: The patient may follow up with Yandel Smith within 7 days of discharge. The patient may follow up with Dr. Johnson with Electrophysiology Service within 6 weeks of discharge. CONDITION ON DISCHARGE: Stable. ACTIVITY: Ad-renetta. DIET: Heart healthy. CODE STATUS: Full. DISPOSITION: Home on 01/16/2019. Job ID: [id number] [facility]
== END 2019-01-16 12:32 | disposition home or self-care (01) ==
LOC: CCL 07:36 → 2SW 14:18 → UNDOADMOB 15:34
PROVIDERS: ADMIT Internal Medicine Cardiovascular Disease; ATTEND Internal Medicine Cardiovascular Disease
PROC: 4A023FZ Measurement of Cardiac Rhythm, Percutaneous Approach (ICD-10-PCS; principal; 2019-01-15)
PROC: 4A0234Z Measurement of Cardiac Electrical Activity, Percutaneous Approach (ICD-10-PCS; 2019-01-15)
PROC: 02583ZZ Destruction of Conduction Mechanism, Percutaneous Approach (ICD-10-PCS; 2019-01-15)
DX: I45.6 Pre-excitation syndrome (principal); J44.9 Chronic obstructive pulmonary disease, unspecified; G47.33 Obstructive sleep apnea (adult) (pediatric); F17.200 Nicotine dependence, unspecified, uncomplicated; Z79.899 Other long term (current) drug therapy; Z88.0 Allergy status to penicillin; Z91.030 Bee allergy status; Z99.89 Dependence on other enabling machines and devices
CPT/HCPCS: 36415; 76942; 80048; 85025; 85610; 85730; 93005; 93010; 93613; 93623; 93653; 93798; 94640; C1730; C1732; C1769; G0378; J1644; J2001; J2250; J2370; J2405; J2550; J2704; J3010; J7620

== ENCOUNTER 2019-01-18 15:39 | Inpatient (IN) | payer OTHER ==
[~2019-01-18 15:39] MED LIST: ISOVUE-370 76%-LOCM 1 ML ONE
[2019-01-18 16:02] LABS: #Basophils 0.1 thou/uL (0.0-0.2); #Eosinphils 0.2 thou/uL (0.0-0.7); #Lymphocytes 4.2 thou/uL (1.20-3.40); #Monocytes 1.2 thou/uL (0.11-0.59); #Neutrophils 9.3 thou/uL (1.40-6.50); %Basophils 0.5 % (0.0-1.0); %Lymphocytes 28.1 % (21.0-51.0); %Monocytes 7.9 % (0.0-10.0); %Neutrophils 62.4 % (42.0-75.0); Hemoglobin 14.4 g/dL (12.0-16.0); Mean Corpuscular HGB CONC 33.5 g/dL (32.0-36.0); Mean Corpuscular Volume 89.5 fL (78.0-98.0); Mean Platelet Volume 7.7 fL (7.4-10.4); Platelet Count 262 thou/uL (130-400); RBC Distribution Width 12.1 % (11.5-14.5); Red Blood Cell (RBC) Count 4.79 mill/uL (4.20-5.40)
--- NOTE | 2019-01-18 16:08 | RAD ---
Portable frontal chest radiograph: 01/18/2019 COMPARISON: 05/18/2017 HISTORY: Shortness of breath, recent heart surgery FINDINGS: Lungs are clear. Heart and mediastinal contours appear within normal limits. IMPRESSION: No acute findings.
[2019-01-18] MEDS ORDERED: Morphine 4 MG/ML VIAL ONE (16:23)
[2019-01-18 16:24] LABS: ALT (SGPT) 36 U/L (8-55); AST (SGOT) 22 U/L (5-34); Albumin 3.9 g/dL (3.5-5.0); Alkaline Phosphatase 162 U/L (40-150); Anion Gap 12 mmol/L (10-20); BUN (Urea Nitrogen) 14 mg/dL (9.8-20.1); Bilirubin, Total 0.6 mg/dL (0.2-1.2); CK (CPK) 112 U/L (29-168); Calc. Creatinine Clearance 0 mL/min (70-130); Calcium 9.3 mg/dL (7.8-10.44); Carbon Dioxide 26 mmol/L (22-29); Chloride 108 mmol/L (98-107); Estimated GFR-MDRD 66; Glucose 104 mg/dL (70-105); Lipase 18 U/L (8-78); Potassium 3.9 mmol/L (3.5-5.1); Protein, Total 6.9 g/dL (6.0-8.3); Sodium 142 mmol/L (136-145)
[2019-01-18 16:50] LABS: CKMB 1.6 ng/mL (0-6.6)
--- NOTE | 2019-01-18 17:17 | CT ---
CT angiogram of the chest and abdomen-CT aortic dissection protocol: 01/18/2019 COMPARISON: None HISTORY: Chest pain in the mid back/chest with difficulty breathing TECHNIQUE: Axial CT imaging at 2.5 mm intervals from the thoracic inlet through the mid sacrum with I V contrast using CT angiogram protocol. Coronal and sagittal 3-D reformatted imaging obtained. FINDINGS: There is no axillary, hilar, or mediastinal lymphadenopathy. No evidence for aneurysm or dissection is seen involving the thoracic aorta. No pneumothorax is noted . There are centrilobular emphysematous changes noted in the upper lobes, right greater than left. There is also subpleural cystic change within bilateral lung apices. There is mild linear atelectatic change/scar within the lingula. No dominant pulmonary parenchymal mass lesion or nodule is noted on either side. No endobronchial lesion is evident. Review of the osseous structures of the chest demonstrates no acute findings. The liver, gallbladder, spleen, pancreas, adrenal glands, and kidneys appear unremarkable. Mild scattered atherosclerotic calcification of the infrarenal abdominal aorta noted. There is no ane urysm or dissection of the abdominal aorta. No retroperitoneal lymphadenopathy is seen. Imaged bowel appears grossly unremarkable. The osseous structures of the abdomen demonstrate no acute findings. Lower lumbar spine facet hypertr ophy present. IMPRESSION: No evidence for aneurysm or dissection of the abdominal or thoracic aorta.
[2019-01-18 19:26] LABS: Critical Call Chem Troponin I RESULT DECREASING; Troponin I 0.472 ng/mL (< 0.028)
[2019-01-18] MEDS ORDERED: Acetaminophen 325 MG TAB PO PRN (20:43)
[2019-01-18] MEDS ORDERED: Ondansetron ODT 4 MG TAB SL PRN (20:43)
[2019-01-18] MEDS ORDERED: Ondansetron PF 4 MG/2 ML Vial IVP PRN (20:43)
[2019-01-18] MEDS ORDERED: Non-Formulary Item 1 EACH (Budesonide-Formoterol [Symbicort 80-4.5] 1 PUFF) INH PRN (21:55)
[2019-01-18] MEDS ORDERED: Albuterol Sulfate 1.25 MG/3 ML NEB NEB PRN (21:55)
[2019-01-18] MEDS ORDERED: Pregabalin 50 MG CAP PO SCH (22:15)
--- NOTE | 2019-01-19 02:22 | HP ---
PRIMARY CARE DOCTOR: Dr. Yandel Smith. CODE STATUS: Full code. TIME OF EVALUATION: 9:40 p.m. CHIEF COMPLAINT: Chest pain and palpitation. HISTORY OF PRESENT ILLNESS: This is a 58 years old female patient, with past medical history of Eoprz-Faxhvhamw-Adggg. The patient has had recent ablation past week, was discharged while having the same symptoms, generalized weakness, symptoms were moderate, associated with palpitations, occasional shortness of breath with no clear triggers, no alleviating factors. REVIEW OF SYSTEMS: All other systems were reviewed and negative except for the findings mentioned above. PAST MEDICAL HISTORY: Positive for sleep apnea, uses CPAP at night; Maimw-Vslunzpur-Swvvj; COPD; and bone spur to the right shoulder. PAST SURGICAL HISTORY: Abdomen tumor that was removed, hysterectomy, and left knee surgery. PSYCHIATRIC HISTORY: No previous psych history. SOCIAL HISTORY: The patient smokes 1 pack per day. No alcohol use. KNOWN ALLERGIES: To penicillin, wasps. REPORTED MEDICATIONS: 1. Albuterol. 2. Symbicort. 3. Omeprazole. PHYSICAL EXAMINATION: VITAL SIGNS: On presentation, blood pressure 146/63 with heart rate 48, temperature 98.1, oxygen saturation 96% on room air. GENERAL APPEARANCE: The patient is alert, oriented, no acute distress. HEENT: Eyes, normal conjunctivae. Moist oral mucosa. Anicteric. No JVD. RESPIRATORY: Bilateral air entry. No rales. No wheezes. Symmetric expansion. CARDIOVASCULAR: Normal rate, regular rhythm. No murmurs, no gallop, no edema. ABDOMEN: Soft. Normal bowel sounds. MUSCULOSKELETAL: Baseline range of motion and strength. SKIN: Warm and intact. No pallor. No rash. No redness. Capillary refill seems to be intact. NEURO: No evidence of any new focal weakness. Cranial nerves seems to be intact. PSYCH: The patient is in good mood. No anxiety. Optimal judgment. IMAGING STUDIES: EKG was reviewed. The patient has sinus bradycardia at the rate of 46. No other acute findings. Radiology; the patient had chest x-ray, is negative for any acute changes. CT dissection, no evidence of aneurysm or dissection of the abdominal or thoracic aorta. No pulmonary findings. LABORATORY DATA: Reviewed. The patient has white count 15, hemoglobin 14.4, MCV 89.5, platelet count 262. Chemistry; sodium 142, potassium 3.9, chloride 108, carbon dioxide 26, anion gap 12, BUN 14, creatinine 0.88, GFR 66, glucose 104, calcium 9.3, total bilirubin 0.6. LFTs were negative. Troponin initial was 0.55, second one 0.42, third one 0.80. Lipase was 18. ASSESSMENT AND PLAN: The patient will be placed in the hospital with following medical problems; 1. Palpitations. The patient had recent ablation done. The patient presented with mildly elevated troponin, might be secondary to the procedure. Dr. Chavez is being called in the ER. We will monitor the patient. We will follow recommendations. Occasionally, the patient had some possible Mobitz II on the telemetry. We will follow recommendation from Cardiology for this matter. The patient has no significant symptoms during my examination. 2. The patient has positive troponin, might be due to recent procedure and rupture of myocardial tissue during the procedure. 3. Leukocytosis of 15. No evidence of infection. This is mild. We will monitor. We will treat with antibiotics if any evidence of infection appears. 4. History of Ybhyo-Qqwgmvxpz-Jimif. The patient had recent ablation. We will follow Cardiology. 5. History of chronic obstructive pulmonary disease. Reconcile home medications. This is chronic, seems to be stable. 6. Deep venous thrombosis prophylaxis. Job ID: [id number]
[2019-01-19 04:25] LABS: #Eosinphils 0.2 thou/uL (0.0-0.7); #Lymphocytes 3.8 thou/uL (1.20-3.40); %Eosinophils 1.5 % (0.0-10.0); %Lymphocytes 31.8 % (21.0-51.0); %Neutrophils 58.8 % (42.0-75.0); Hemoglobin 13.1 g/dL (12.0-16.0); Mean Corpuscular HGB CONC 34.6 g/dL (32.0-36.0); Mean Corpuscular Hemoglobin 31.1 pg (27.0-31.0); Mean Corpuscular Volume 90.1 fL (78.0-98.0); Mean Platelet Volume 7.7 fL (7.4-10.4); Platelet Count 222 thou/uL (130-400); RBC Distribution Width 12.1 % (11.5-14.5); White Blood Cell (WBC) Count 11.9 thou/uL (4.8-10.8)
[2019-01-19 04:45] LABS: Anion Gap 11 mmol/L (10-20); BUN (Urea Nitrogen) 16 mg/dL (9.8-20.1); Calc. Creatinine Clearance 91 mL/min (70-130); Calcium 8.7 mg/dL (7.8-10.44); Carbon Dioxide 25 mmol/L (22-29); Chloride 106 mmol/L (98-107); Estimated GFR-MDRD 76; Glucose 102 mg/dL (70-105); Potassium 3.9 mmol/L (3.5-5.1); Sodium 138 mmol/L (136-145)
[2019-01-19] MEDS: Montelukast Sodium 10 mg Tablet PO SCH (08:46)
[2019-01-19] MEDS ORDERED: Non-Formulary Item 1 EACH (Omeprazole [Omeprazole] 40 MG) PO SCH (09:00)
--- NOTE | 2019-01-19 16:16 | PDOC.HOSPP ---
- Subjective Encounter Date: 01/19/19 Encounter Time: 10:40 Subjective: Pt seen for followup re: palpitations. Reports fluttering sensation in chest, light headedness and shortness of breath. - Objective Vital Signs & Weight: Vital Signs (12 hours) Temp Pulse Resp BP Pulse Ox 01/19/19 11:40 97.9 F 78 18 130/74 96 01/19/19 07:29 97.9 F 66 18 115/70 95 01/19/19 05:00 64 16 116/76 98 Weight Weight 157 lb 4.8 oz I&O: 01/18/19 01/19/19 01/20/19 06:59 06:59 06:59 Intake Total 500 Balance 500 Result Diagrams: 01/19/19 04:16 01/19/19 04:16 Additional Labs: labs and MARs reviewed by me EKG Reviewed by me: Yes (Tele; NSR) Hospitalist ROS - Review of Systems Cardiovascular: denies: chest pain, palpitations, orthopnea, paroxysmal noc. dyspnea, edema, light headedness Gastrointestinal: denies: nausea, vomiting, abdominal pain, diarrhea, constipation, melena, hematochezia - Medication Medications: Active Medications Generic Name Dose Route Start Last Admin Trade Name Freq PRN Reason Stop Dose Admin Montelukast Sodium 10 mg 01/19/19 09:00 01/19/19 08:46 Singulair PO 10 mg QAM JULIO Administration Pantoprazole Sodium 40 mg 01/19/19 09:00 01/19/19 08:46 Protonix PO 40 mg BID JULIO Administration - Exam General Appearance: NAD Eye: anicteric sclera ENT: moist mucosa Neck: supple Heart: RRR Respiratory: CTAB Gastrointestinal: soft, non-tender Neurological: no weakness Psychiatric: normal affect, normal behavior Hosp A/P (1) Palpitations Code(s): R00.2 - PALPITATIONS Status: Acute (2) MAXX (obstructive sleep apnea) Code(s): G47.33 - OBSTRUCTIVE SLEEP APNEA (ADULT) (PEDIATRIC) Status: Chronic (3) COPD (chronic obstructive pulmonary disease) Status: Chronic (4) WPW (Hfuxi-Wirtkitxi-Yopss syndrome) Code(s): I45.6 - PRE-EXCITATION SYNDROME Status: Chronic - Plan Await cardiology/EP services input. Pt now in sinus rhythm. Pt to use CPAP while asleep. COPD stable. Elevated troponin likely secondary to recent ablation for WPW syndrome.
[2019-01-19] MEDS ORDERED: predniSONE 50 MG TAB PO SCH (17:30)
[2019-01-19] MEDS: Pregabalin 50 MG CAP PO SCH (19:59)
[2019-01-20] MEDS: Montelukast Sodium 10 mg Tablet PO SCH (09:00)
[2019-01-20] MEDS: predniSONE 50 MG TAB PO SCH (09:00)
--- NOTE | 2019-01-20 10:33 | PRG ---
DATE OF SERVICE: 01/20/2019 SUBJECTIVE: Mrs. Saravia seems to be doing better this morning. No further dizziness or loss of consciousness. Mild chest fluttering is noted only. She continues to use her CPAP for nighttime. OBJECTIVE DATA: VITAL SIGNS: Blood pressure this morning is 147/66, heart rate 52, respiratory rate is 18, temperature 97.8 degrees Fahrenheit. GENERAL: Alert and oriented woman, in no apparent distress. NECK: Supple. Jugular veins not distended. CHEST: Coarse. No crackles. CARDIAC: Heart sounds are regular to rate and rhythm. No murmur or gallop. ABDOMEN: Benign. Bowel sounds positive. Groin sites without hematoma. EXTREMITIES: Lower extremity without swelling. DATABASE: Telemetry strips reveal sinus rhythm, first-degree AV block, no further higher grade AV block is seen since yesterday morning. LABORATORY DATA: No new labs. ASSESSMENT AND PLAN: Ms. Saravia is a pleasant 58-year-old woman with history of Pcwgs-Suadzgmpz-Ekoxc syndrome, status post posterior septal pathway ablation, who seems to have a transient AV blocks post ablation which has recurred, possibly also additionally caused by vagotonia related her pleuritic chest pains. Local irritation from the ablation also a possibility. We started her on steroids yesterday, which should be like a pulse steroid dose and we will continue to monitor her further . If remains stable, possible discharge home tomorrow, if AV blocks reoccur, pacemaker implantation is a possibility. We discussed this with the patient and family. They understand. We will follow with you. Job ID: [id number]
[2019-01-20] MEDS ORDERED: Senokot S 8.6-50 MG TAB PO SCH (11:45)
--- NOTE | 2019-01-20 12:25 | PDOC.CPN ---
- Subjective Date: 01/20/19 Time: 12:23 Interval history: She is doing well. No chest pain, tightness, pressure, SOB. She has back pain but it is positional. - Review of Systems General: denies: fever/chills, weight/appetite/sleep changes, night sweats, fatigue Respiratory: denies: cough, congestion, shortness of breath, exercise intolerance Cardiovascular: reports: chest pain. denies: palpitation, edema, paroxysmal nocturnal dyspnea, orthopnea Gastrointestinal: denies: nausea, vomiting, diarrhea, constipation, abd pain, GI bleeding Musculoskeletal: denies: pain, tenderness, stiffness, swelling, arthritis/ arthralgias Neurological: denies: numbness, syncope, seizure, weakness - Objective Allergies/Adverse Reactions: Allergies Allergy/AdvReac Type Severity Reaction Status Date / Time Penicillins Allergy Verified 01/14/19 11:55 Wasps Allergy Severe Anaphylaxis Uncoded 01/14/19 11:55 Visit Medications: Current Medications Acetaminophen (Tylenol) 650 mg PO Q4H PRN PRN Reason: Headache/Fever or Pain Stop: 01/23/19 06:00 Albuterol Sulfate (Albuterol Sulfate) 1.25 mg NEB Q6H PRN PRN Reason: COPD Albuterol/Ipratropium (Duoneb) 3 ml NEB HS PRN PRN Reason: COPD Ketorolac Tromethamine (Toradol) 30 mg IVP Q4H PRN PRN Reason: Chest Pain Stop: 01/24/19 17:22 Mometasone Furoate/Formoterol Fumar (Dulera 100 Mcg/5 Mcg Inhaler) 1 puff INH BID PRN PRN Reason: COPD Montelukast Sodium (Singulair) 10 mg PO [facility] Last Admin: 01/20/19 09:00 Dose: 10 mg Ondansetron HCl (Zofran) 4 mg IVP Q6H PRN PRN Reason: Nausea/Vomiting Stop: 01/23/19 06:00 Ondansetron HCl (Zofran Odt) 4 mg SL Q6H PRN PRN Reason: Nausea/Vomiting Stop: 01/23/19 06:00 Pantoprazole Sodium (Protonix) 40 mg PO BID [facility] Last Admin: 01/20/19 09:00 Dose: 40 mg Prednisone (Prednisone) 50 mg PO [facility] Stop: 01/25/19 08:01 Last Admin: 01/20/19 09:00 Dose: 50 mg Pregabalin (Lyrica) 50 mg PO HS [facility] Last Admin: 01/19/19 19:59 Dose: 50 mg Senna/Docusate Sodium (Senokot S) 1 tab PO BID JULIO Senna/Docusate Sodium (Senokot S) 1 tab PO 1145 JULIO Stop: 01/20/19 13:00 Last Admin: 01/20/19 12:20 Dose: 1 tab Sodium Chloride (Flush - Normal Saline) 10 ml IVF PRN PRN PRN Reason: Saline Flush Vital Signs & Weight: Vital Signs Temp Pulse Resp BP Pulse Ox 01/20/19 08:20 97.8 F 52 L 18 147/66 H 96 01/20/19 04:00 50 L 16 121/68 96 Weight 158 lb 14.4 oz - Physical Exam General: alert & oriented x3, no apparent distress HEENT: mucus membranes moist, normocephaly Neck: supple neck, midline trachea Cardiac: regular rate and rhythm, no murmur Lungs: clear to auscultation, no wheeze, rales, rhonchi Neuro: grossly intact, coordination normal Abdomen: active bowel sounds, soft, non-tender Skin: clear Musculoskeletal: normal range of motion, no pain - Labs Result Diagrams: 01/19/19 04:16 01/19/19 04:16 Troponin/CKMB CK-MB (CK-2) 1.6 ng/mL (0-6.6) 01/18/19 15:55 Troponin I 0.480 ng/mL (< 0.028) H* 01/18/19 21:59 - Telemetry Sinus rhythms and dysrhythmias: sinus rhythm - Assessment/Plan Assessment/Plan: 1. Chest pain. 2. WPW 3. S/P posterior septal pathway ablation 4. Transient AV block. PLAN: - EP following. - Will get echo. - Continue steroids per EP.
[2019-01-20] MEDS: Mometasone/Formoterol 120 PUFF INHALER INH PRN (13:00)
--- NOTE | 2019-01-20 13:17 | CON ---
DATE OF CONSULTATION: 01/19/2019 ADDITIONAL REFERRING PHYSICIAN: Dr. Girish Taveras. HISTORY OF PRESENT ILLNESS: I am seeing Ms. 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 Her problems are: 1. New onset of bradycardia with 2:1/Mobitz type I second-degree AV block. 2. Prior history of SVT/palpitations with WPW syndrome. a. Status post EP study and posterior septal pathway ablation on 01/15/2019. 3. History of obstructive sleep apnea, on CPAP. 4. Atypical pleuritic chest pains. 5. COPD/asthma. ALLERGIES: 1. PENICILLIN. 2. WASPS. MEDICATIONS: At home included: 1. Albuterol. 2. Symbicort. 3. Omeprazole. SUBJECTIVE: Ms. Saravia is here due to dizziness, palpitations, and atypical chest pains, which appears to be pleuritic. These discomforts have been present ever since the ablation, intermittent. She wakes up at night, not comfortable with them. She also had some dizziness and mild lightheadedness noted, but did not pass out. Her heart was with variable speeds, according to her perception, fast and slow. No extreme tachycardia that she felt before has recurred. She does not pass out. No neurological symptoms. No fever, chills, or cough. No lower extremity swelling. No PND or orthopnea noted. REVIEW OF SYSTEMS: Rest of 12-point review of systems is otherwise unremarkable. PAST MEDICAL HISTORY: As above. She has a history of bone spur to the right shoulder. SOCIAL HISTORY: The patient smokes 1 pack per day. Denies EtOH or drug abuse. FAMILY HISTORY: Not contributory. OBJECTIVE DATA: VITAL SIGNS: Blood pressure 130/74, heart rate 78, respirations 18, temperature 97.9 degrees Fahrenheit. PHYSICAL EXAMINATION: GENERAL: Alert and oriented woman, in no apparent distress. NECK: Supple. Jugular vein is not distended. CHEST: Coarse without crackles. HEART: Sounds are regular to rate and rhythm. No murmur or gallop. ABDOMEN: Benign. Bowel sounds are positive. EXTREMITIES: Lower extremities without edema, clubbing, or cyanosis. NEUROLOGIC: The patient is nonfocal. MUSCULOSKELETAL: Without joint swelling or deformity. SKIN: Without rash. DATABASE: The chest x-ray shows no acute findings. CT of the chest shows no tamponade, PE, or dissection. LABORATORY DATA: White cell count is 15.0, then 11.9; hemoglobin and hematocrit platelet count is 262, then 222. The sodium initially 142, potassium 3.9, BUN is 14, creatinine is 0.88. Troponin levels are 0.55, then 0.472, and 0.480 consecutively. The EKG is reviewed initially revealing a 2:1 AV block. Subsequent EKG and telemetry strips reveal first-degree AV block alternating with Mobitz type I second-degree AV block. The heart rates in the 40s with the lowest numbers 16 and 17 when 1:1 conduction is seen. No further bradycardia since yesterday morning is noted. ASSESSMENT AND PLAN: 1. Ms. 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 Ablation was performed on the by me in the posterior septal area. She did have transient block while on Isuprel, but that resolved with acceptable Wenckebach, and subsequent EKGs revealed no further AV block on monitoring overnight. On discharge, she was stable on the . Subsequently, she had further chest discomfort. She again developed further AV block. With control of chest discomfort through the monitoring, her AV block seems to be resolving now. The AV block Mobitz type 1 and occasion 220 block is observed, but this could be related to the irritation in the AV kei area, possibly enhanced vagotonia related to her pleuritic chest discomforts. Possibly, sleep apnea also could be contributing as well. The patient is hesitant to proceed with pacemaker just yet, we would like to do further observation. Also, placed her on steroids to minimize the local inflammation. 2. History of accessory pathway is currently not observable on current EKGs. Increased MA is noted. No recurrent supraventricular tachycardia on telemetry so far. 3. Status post recent ablation. No evidence of significant pericardial effusion by CT scan. No evidence of pulmonary embolism either. 4. Sleep apnea, on the CPAP. We will follow with you. Thank you for allowing me to participate in the care of this patient. Job ID: [id number]
--- NOTE | 2019-01-20 13:58 | PDOC.HOSPP ---
- Subjective Encounter Date: 01/20/19 Encounter Time: 07:00 Subjective: Pt seen for followup re: palpitations. Feels palpitations. Chest pain is better. - Objective Vital Signs & Weight: Vital Signs (12 hours) Temp Pulse Resp BP Pulse Ox 01/20/19 13:00 60 14 97 01/20/19 11:35 97.5 F L 70 18 130/88 98 01/20/19 08:20 97.8 F 52 L 18 147/66 H 96 01/20/19 04:00 50 L 16 121/68 96 Weight Weight 158 lb 14.4 oz I&O: 01/19/19 01/20/19 01/21/19 06:59 06:59 06:59 Intake Total 2059 Output Total 2039 Balance 20 Result Diagrams: 01/19/19 04:16 01/19/19 04:16 Additional Labs: Labs and MARs reviewed by me EKG Reviewed by me: Yes (Tele: NSR) Hospitalist ROS - Review of Systems Cardiovascular: reports: chest pain, palpitations. denies: orthopnea, paroxysmal noc. dyspnea, edema, light headedness Gastrointestinal: denies: nausea, vomiting, abdominal pain, diarrhea, constipation, melena, hematochezia - Medication Medications: Active Medications Generic Name Dose Route Start Last Admin Trade Name Freq PRN Reason Stop Dose Admin Mometasone Furoate/Formoterol Fumar 1 puff 01/18/19 22:08 01/20/19 13:00 Dulera 100 Mcg/5 Mcg Inhaler INH 1 puff BID PRN Administration COPD Montelukast Sodium 10 mg 01/19/19 09:00 01/20/19 09:00 Singulair PO 10 mg QAM JULIO Administration Pantoprazole Sodium 40 mg 01/19/19 09:00 01/20/19 09:00 Protonix PO 40 mg BID JULIO Administration Prednisone 50 mg 01/20/19 08:00 01/20/19 09:00 Prednisone PO 01/25/19 08:01 50 mg QAM-WM JULIO Administration Pregabalin 50 mg 01/19/19 21:00 01/19/19 19:59 Lyrica PO 50 mg HS JULIO Administration - Exam General - other findings: Obese Eye: anicteric sclera ENT: moist mucosa Neck: supple, no JVD Heart: RRR, no gallops Respiratory: CTAB, no wheezes Gastrointestinal: soft, non-tender Musculoskeletal: normal tone, normal strength Psychiatric: normal affect, normal behavior Hosp A/P (1) Palpitations Code(s): R00.2 - PALPITATIONS Status: Acute (2) MAXX (obstructive sleep apnea) Code(s): G47.33 - OBSTRUCTIVE SLEEP APNEA (ADULT) (PEDIATRIC) Status: Chronic (3) COPD (chronic obstructive pulmonary disease) Status: Chronic (4) WPW (Himqi-Xxexchgzh-Xhcjf syndrome) Code(s): I45.6 - PRE-EXCITATION SYNDROME Status: Chronic - Plan Pt had second degree AV block transiently, now in sinus rhythm. CPAP while asleep. COPD stable. Pt is on steroids for chest pain.
[2019-01-20] MEDS: Pregabalin 50 MG CAP PO SCH (19:44)
[2019-01-20] MEDS: Senokot S 8.6-50 MG TAB PO SCH (19:45)
[2019-01-21] MEDS: predniSONE 50 MG TAB PO SCH (08:33)
[2019-01-21] MEDS: Montelukast Sodium 10 mg Tablet PO SCH (08:33)
[2019-01-21] MEDS: Ketorolac Tromethamine 30 MG/ML VIAL IVP PRN ×2 (08:33→20:40)
[2019-01-21] MEDS: Senokot S 8.6-50 MG TAB PO SCH ×2 (08:33→20:37)
[2019-01-21] MEDS: Mometasone/Formoterol 120 PUFF INHALER INH PRN ×2 (10:06→18:43)
--- NOTE | 2019-01-21 12:22 | PRG ---
DATE OF SERVICE: 01/21/2019 SUBJECTIVE: Ms. Saravia seems to be doing fair. Still has some chest and back aches and mild dizziness at times. Minimal palpitations. No complete loss of consciousness discomfort. Groin sites still adequately healing. OBJECTIVE: VITAL SIGNS: Blood pressure is 137/72, heart rate 50, respirations 18, and temperature 98.2 degrees Fahrenheit. GENERAL: She is alert and oriented woman, in no apparent distress. NECK: Supple. Jugular veins not distended. CHEST: Coarse. No crackles. HEART: Sounds are regular to rate and rhythm. No murmur or gallop. ABDOMEN: Benign. Bowel sounds are positive. Lower extremity without edema, clubbing, or cyanosis. DATABASE: Telemetry strips reviewed, revealing sinus rhythm with 1:1 AV conduction. Intermittent accessory pathway conduction is seen noted. 2D echo results are pending. ASSESSMENT AND PLAN: Ms. Saravia is a very pleasant 58-year-old woman with history of rapid palpitations and accessory pathway on EKG. The EP study demonstrated a posterior septal pathway, which was ablated, but gradual pathway conduction is still seen. On the other hand, no definite SVT was inducible despite of the presence of the pathway. She did have a transient AV block developed after the ablation, which is resolved by the next day, then again recurred 3 days after prompting to her current admission. The AV block, which was AV kei level, Mobitz type 1, second-degree AV block and 2:1 AV block when she came into the hospital 3 days ago, has now resolved. She has no further significant bradyarrhythmias. Intermittent pre-excitation still seen, but no SVT is noted. Dr. Taveras is checking an echocardiogram to rule out effusion, though which was not seen on CT scan. At this point, routine outpatient monitoring is planned arranging for her to have an outpatient monitor placed once she gets discharged. I would still continue a week of prednisone therapy daily to mitigate the inflammation/edema at the ablation site. I will see her back in the office after the monitor is complete. Migraine headaches, likely unrelated to the EP issues. Atypical chest pains, possibly pericardial irritation, hopefully improved with steroids and nonsteroidal agents as well. Sleep apnea, on CPAP use. Job ID: [id number]
--- NOTE | 2019-01-21 13:44 | PDOC.HOSPP ---
- Subjective Encounter Date: 01/21/19 Encounter Time: 07:20 Subjective: Pt seen for followup re: palpitations. Feels better. - Objective Vital Signs & Weight: Vital Signs (12 hours) Temp Pulse Resp BP Pulse Ox 01/21/19 11:29 97.6 F 59 L 16 132/77 96 01/21/19 10:06 69 12 96 01/21/19 08:00 98.2 F 57 L 18 127/72 98 01/21/19 04:00 97.9 F 61 16 118/65 97 Weight Admit Weight 157 lb 4.8 oz Weight 158 lb 14.4 oz I&O: 01/20/19 01/21/19 01/22/19 06:59 06:59 06:59 Intake Total 2059 1510 480 Output Total 2039 2074 Balance 20 -565 480 Result Diagrams: 01/19/19 04:16 01/19/19 04:16 Additional Labs: Labs and MARs reviewed by me EKG Reviewed by me: Yes (Tele: NSR) Hospitalist ROS - Review of Systems Cardiovascular: denies: chest pain, palpitations, orthopnea, paroxysmal noc. dyspnea, edema, light headedness Gastrointestinal: denies: nausea, vomiting, abdominal pain, diarrhea, constipation, melena, hematochezia - Medication Medications: Active Medications Generic Name Dose Route Start Last Admin Trade Name Freq PRN Reason Stop Dose Admin Ketorolac Tromethamine 30 mg 01/19/19 17:21 01/21/19 08:33 Toradol IVP 01/24/19 17:22 30 mg Q4H PRN Administration Chest Pain Mometasone Furoate/Formoterol Fumar 1 puff 01/18/19 22:08 01/21/19 10:06 Dulera 100 Mcg/5 Mcg Inhaler INH 1 puff BID PRN Administration COPD Montelukast Sodium 10 mg 01/19/19 09:00 01/21/19 08:33 Singulair PO 10 mg QAM JULIO Administration Pantoprazole Sodium 40 mg 01/19/19 09:00 01/21/19 08:33 Protonix PO 40 mg BID JULIO Administration Prednisone 50 mg 01/20/19 08:00 01/21/19 08:33 Prednisone PO 01/25/19 08:01 50 mg QAM-WM JULIO Administration Pregabalin 50 mg 01/19/19 21:00 01/20/19 19:44 Lyrica PO 50 mg HS JULIO Administration Senna/Docusate Sodium 1 tab 01/20/19 21:00 01/21/19 08:33 Senokot S PO 1 tab BID JULIO Administration Sodium Chloride 10 ml 01/18/19 20:43 01/21/19 08:35 Flush - Normal Saline IVF 10 ml PRN PRN Administration Saline Flush - Exam General - other findings: Obese Eye: anicteric sclera ENT: moist mucosa Neck: supple, no JVD Heart: RRR, no rubs Respiratory: CTAB, no rales Gastrointestinal: soft, non-tender Musculoskeletal: normal strength Psychiatric: normal affect, normal behavior Hosp A/P (1) Palpitations Code(s): R00.2 - PALPITATIONS Status: Acute (2) MAXX (obstructive sleep apnea) Code(s): G47.33 - OBSTRUCTIVE SLEEP APNEA (ADULT) (PEDIATRIC) Status: Chronic (3) COPD (chronic obstructive pulmonary disease) Status: Chronic (4) WPW (Srzto-Kvktyexmt-Nzfzh syndrome) Code(s): I45.6 - PRE-EXCITATION SYNDROME Status: Chronic - Plan out of bed/ambulate Pt now in sinus rhythm. Pt is using CPAP while asleep. COPD stable. Pt is on steroids for chest pain. Likely home 24 hours.
[2019-01-21] MEDS: Pregabalin 50 MG CAP PO SCH (20:36)
[2019-01-22] MEDS: Mometasone/Formoterol 120 PUFF INHALER INH PRN (06:56)
[2019-01-22 08:13] VITALS: BP 134/75; TEMP 98
[2019-01-22] MEDS: predniSONE 50 MG TAB PO SCH (09:24)
[2019-01-22] MEDS: Montelukast Sodium 10 mg Tablet PO SCH (09:25)
[2019-01-22] MEDS: Senokot S 8.6-50 MG TAB PO SCH (09:42)
--- NOTE | 2019-01-22 11:48 | PRG ---
DATE OF SERVICE: 01/22/2019 SUBJECTIVE: Mrs. Saravia seems to be doing well. No further dizziness or loss of consciousness. Her chest pains are almost completely resolved. OBJECTIVE: VITAL SIGNS: Blood pressure 135/75, heart rate 61, respirations 16. The patient is afebrile. GENERAL: Alert and oriented woman, in no apparent distress. NECK: Supple. Jugular veins not distended. CHEST: Coarse without crackles. HEART: Sounds are regular to rate and rhythm. No murmur or gallop. ABDOMEN: Benign. Bowel sounds positive. EXTREMITIES: Lower extremities without edema, clubbing, or cyanosis. DATABASE: Telemetry strips reviewed, revealing sinus rhythm, occasional nighttime sinus bradycardia down in the 40s are seen. No AV block is observed. Presence of accessory pathway is still documented. ASSESSMENT AND PLAN: Mrs. Saravia is a pleasant 58-year-old woman with history of accessory pathway and palpitations. She underwent an EP study and attempted posteroseptal accessory pathway ablation. She developed transitional AV block on Isuprel, but not during ablation. Eventually, the AV block resolved. She was discharged, but she came back again over the weekend with recurrent palpitations and dizziness. She had transitional bradycardia with short 2:1, then Mobitz type 1 AV blocks, but they resolved within the first 24 hours of hospital stay. She was placed on prednisone and continued to be monitored. Her followup 2D echo and a CT scan on admission did not reveal any pericardial effusion. The AV block completely resolved. Now, her symptoms of dizziness as well as the pericardial pain and discomforts have also normalized. Her groin sites are also well healed. At this point, it is reasonable for her to be discharged. We will arrange further monitoring as an outpatient for next 2 weeks. The followup in the office afterwards. The patient is advised to return to the hospital in case further dizziness or loss of consciousness occur. Job ID: [id number]
--- NOTE | 2019-01-23 02:29 | DIS ---
DATE OF ADMISSION: 01/18/2019 DATE OF DISCHARGE: 01/22/2019 PRIMARY CARE PROVIDER: Dr. Yandel Smith. DISCHARGE DIAGNOSES: 1. Chest pain. 2. Likely musculoskeletal etiology for chest pain. 3. Transient AV block. CONDITION OF PATIENT ON THE DAY OF DISCHARGE: Stable. I assessed Ms. Saravia on the day of discharge. She denies any chest pain or shortness of breath. Vital signs are stable. S1 and S2 are heard, regular. Lungs are clear to auscultation bilaterally. CONSULTATIONS DURING THIS HOSPITALIZATION: 1. Cardiology, Dr. Taveras. 2. Electrophysiology, Dr. Johnson. DISCHARGE MEDICATIONS: 1. Montelukast 10 mg daily. 2. Omeprazole 40 mg 2 times a day. 3. Lyrica 50 mg at bedtime. 4. Prednisone 50 mg daily for 3 more days. 5. Albuterol nebs p.r.n. 6. Ibuprofen p.r.n. 7. Symbicort p.r.n. 8. DuoNeb p.r.n. FOLLOWUP APPOINTMENTS: The patient to follow up with primary care provider and with Electrophysiology Service. HOSPITAL COURSE: Ms. Saravia is a pleasant 58-year-old lady, who was admitted to [facility] on January 18, 2019, for chest pain and transient atrioventricular block following recent ablation. She was seen by Cardiology and Electrophysiology Services. She was treated with anti- inflammatory agents and steroids. 2D echocardiogram showed left ventricular ejection fraction of 60% to 65%, grade 1/3 diastolic dysfunction, moderate mitral regurgitation, and mild tricuspid regurgitation. She has been cleared for discharge by Electrophysiology and Cardiology Services. Electrophysiology Service will arrange further monitoring as an outpatient for the next two weeks. Many thanks for allowing me to participate in your patient's care. Please feel free to contact me with any questions or concerns. DISCHARGE DESTINATION: Home. TIME SPENT: Total amount of time spent coordinating this discharge: 32 minutes. Job ID: [id number] MTDD
== END 2019-01-22 16:14 | disposition home or self-care (01) | DRG 313 ==
LOC: ERS 15:39 → 2NO 20:30
PROVIDERS: ADMIT Hospitalist; ATTEND Hospitalist
DX: R07.89 Other chest pain (principal); R00.2 Palpitations; G47.33 Obstructive sleep apnea (adult) (pediatric); J44.9 Chronic obstructive pulmonary disease, unspecified; I45.6 Pre-excitation syndrome; I07.1 Rheumatic tricuspid insufficiency; E66.9 Obesity, unspecified; Z68.30 Body mass index [BMI] 30.0-30.9, adult; I44.1 Atrioventricular block, second degree; Z88.0 Allergy status to penicillin; G43.909 Migraine, unspecified, not intractable, without status migrainosus
CPT/HCPCS: 36415; 71045; 71275; 72191; 74175; 80048; 80053; 82550; 82553; 83690; 84484; 85025; 93005; 93306; 94760; 96374; J1885; J2270; Q9966

== ENCOUNTER 2019-04-30 09:54 | Emergency (ER) | payer OTHER | END 2019-04-30 11:36 | disposition home or self-care (01) | LOC: ERS 09:54 | DX: S86.912A Strain of unspecified muscle(s) and tendon(s) at lower leg level, left leg, initial encounter (principal); S86.911A Strain of unspecified muscle(s) and tendon(s) at lower leg level, right leg, initial encounter; M19.90 Unspecified osteoarthritis, unspecified site; J44.9 Chronic obstructive pulmonary disease, unspecified; G47.30 Sleep apnea, unspecified; F17.210 Nicotine dependence, cigarettes, uncomplicated; Z79.51 Long term (current) use of inhaled steroids; Z79.899 Other long term (current) drug therapy; X50.1XXA Overexertion from prolonged static or awkward postures, initial encounter | CPT/HCPCS: 99283 ==

== ENCOUNTER 2019-07-04 14:30 | Outpatient (CLI) | payer OTHER ==
--- NOTE | 2019-07-04 16:17 | BD ---
Exam: DEXA Bone Density 07/04/19 HISTORY: Postmenopausal screening for osteoporosis. Osteopenia. Lumbar Spine: BMD (g/cm2) T-SCORE Z-SCORE L1 0.764 -2.1 -1.0 L2 0.735 -2.7 -1.5 L3 0.827 -2.3 -7.1 L4 0.817 -2.2 -1.0 L1-L4 0.789 -2.3 -1.2 Femoral Neck: 0.623 -2.0 -0.9 Total Femur: 0.682 -2.1 -1.4 The ten year fracture risk for major osteoporotic fracture is 15% and for hip fracture is 3.1%. Impression: Osteopenia. POS: KEENAN
== END 2019-07-04 14:31 | disposition home or self-care (01) ==
LOC: BICMAMMO 14:30
PROVIDERS: ATTEND Family Medicine
DX: M85.80 Other specified disorders of bone density and structure, unspecified site (principal)
CPT/HCPCS: 77080

== ENCOUNTER 2019-08-02 12:26 | Emergency (ER) | payer OTHER | END 2019-08-02 13:03 | disposition home or self-care (01) | LOC: ERS 12:26 | DX: T81.41XA Infection following a procedure, superficial incisional surgical site, initial encounter (principal); J44.9 Chronic obstructive pulmonary disease, unspecified; F17.210 Nicotine dependence, cigarettes, uncomplicated | CPT/HCPCS: 99283 ==

== ENCOUNTER 2020-07-02 12:46 | Outpatient (CLI) | payer OTHER | END 2020-07-02 12:47 | disposition home or self-care (01) | LOC: BICMAMMO 12:46 | PROVIDERS: ATTEND Family Medicine | DX: Z12.31 Encounter for screening mammogram for malignant neoplasm of breast (principal); M79.641 Pain in right hand; M79.642 Pain in left hand | CPT/HCPCS: 77067 ==

== ENCOUNTER 2021-04-25 15:59 | Outpatient (CLI) | payer OTHER | END 2021-04-25 16:00 | disposition home or self-care (01) | LOC: RAD 15:59 | PROVIDERS: ATTEND Family Medicine | DX: S61.230A Puncture wound without foreign body of right index finger without damage to nail, initial encounter (principal) ==

== ENCOUNTER 2021-10-25 11:01 | Outpatient (CLI) | payer OTHER | END 2021-10-25 11:02 | disposition home or self-care (01) | LOC: BICMAMMO 11:01 | PROVIDERS: ATTEND Family Medicine | DX: Z12.31 Encounter for screening mammogram for malignant neoplasm of breast (principal) | CPT/HCPCS: 77067 ==